=== PATIENT | female | born 1960 | race Caucasian/White ===

== ENCOUNTER 2020-08-07 20:07 | Observation (INO) ==
[2020-08-07] MEDS ORDERED: ALBUTEROL/IPRATROPIUM 3 ML NEB RESP TX STA (21:01)
[2020-08-07 21:09] LABS: Basophils # 0.1 10*3/uL (0.0-0.2); Basophils % 0.6 % (0.0-0.8); Eosinophils # 0.1 10*3/uL (0.0-0.87); Eosinophils % 0.7 % (0.00-10.9); Hematocrit 33.9 VOL% (35.7-47.0); Hemoglobin 11.8 GM/DL (12.0-16.0); Immature Granulocytes % 0.2 %; Immature Granulocytes Absolute 0.02 #; Lymphocytes # 3.4 10*3/uL (1.4-4.0); Lymphocytes % 35.7 % (21.3-54.2); Mean Corpuscular HGB Conc 34.8 GM/DL (32-36); Mean Corpuscular Volume 99.7 FL (87-102); Mean Platelet Volume 8.9 FL (9.6-12.0); Monocytes % 8.1 % (1.7-12.7); Neutrophils % 54.7 % (38.7-73.9); Platelet Count 335 T/CUMM (130-400); Red Cell Distribution Width 11.8 % (9.3-17.3); White Blood Count 9.5 T/CUMM (4-12)
[2020-08-07 21:16] LABS: PT Patient Result 10.9 SECS (9.8-11.9)
[2020-08-07 21:22] LABS: Alanine Aminotransferase 19 U/L (13-56); Albumin 3.9 G/DL (3.4-5.0); Alkaline Phosphatase 80 U/L (45-117); Aspartate Amino Transferase 18 U/L (0-37); Bilirubin,Total < 0.39 MG/DL (0.2-1.0); Blood Urea Nitrogen 12 MG/DL (7-18); Calcium 9.4 MG/DL (8.5-10.1); Estimated Glom Filtration Rate 54 ML/MIN; Glucose 123 MG/DL (74-106); Osmolality,Calculated 264.5 MOS/KG (273-304); Salicylate < 2.8 MG/DL (2.8-20); Total Protein 8.1 G/DL (6.4-8.3)
[2020-08-07 21:23] LABS: Acetaminophen < 2.0 UG/ML (10-30)
[2020-08-07 22:00] LABS: Bacteria,Urine Occasional /HPF (Few); Bilirubin,Urine Negative (Negative); Blood, Urine Small mg/dL (Negative); Glucose,Urine (UA) Negative (Negative); Ketones,Urine Negative (Negative); Nitrite,Urine Negative (Negative); Protein,Urine Negative; RBC,Urine <1 /HPF (0-4); Urine Appearance CLEAR (Clear); Urine Color Straw (Yellow); Urine Urobilinogen < 2.0 EU/DL (0.2-1.0); WBC,Urine 1 /HPF (0-6)
[2020-08-07 22:06] LABS: Barbiturates Screen,Urine Negative (Negative); Benzodiazepines Screen,Urine Negative (Negative); Cannabinoid Screen,Urine Negative (Negative); Opiate Screen,Urine Negative (Negative); Phencyclidine Screen,Urine Negative (Negative)
[2020-08-07] MEDS ORDERED: FUROSEMIDE 40 MG/4 ML VIAL IV STA (22:56)
[2020-08-07] MEDS ORDERED: PHENYTOIN INJ 1,000 MG in SODIUM CHLORIDE 0.9% 100 ML IV STA (22:59)
[2020-08-08] MEDS ORDERED: LORazepam 2 MG/1 ML VIAL IV STA (02:56)
[2020-08-08] MEDS ORDERED: ACETAMINOPHEN 325 MG TABLET PO PRN (02:57)
[2020-08-08] MEDS ORDERED: CLORAZEPATE 3.75 MG TABLET PO PRN (03:26)
[2020-08-08] MEDS ORDERED: INFLUENZA VIRUS VACCINE 0.5 ML SYRINGE IM ONE (05:19)
[2020-08-08] MEDS ORDERED: PNEUMOCOCCAL VACCINE (23 VALENT) 0.5 ML VIAL IM ONE (05:28)
[2020-08-08 05:30] LABS: Basophils # 0.1 10*3/uL (0.0-0.2); Basophils % 0.7 % (0.0-0.8); Eosinophils # 0.1 10*3/uL (0.0-0.87); Eosinophils % 1.7 % (0.00-10.9); Hematocrit 35.3 VOL% (35.7-47.0); Hemoglobin 11.9 GM/DL (12.0-16.0); Immature Granulocytes % 0.4 %; Immature Granulocytes Absolute 0.03 #; Lymphocytes # 3.7 10*3/uL (1.4-4.0); Lymphocytes % 45.1 % (21.3-54.2); Mean Corpuscular HGB Conc 33.7 GM/DL (32-36); Mean Corpuscular Volume 100.6 FL (87-102); Mean Platelet Volume 8.7 FL (9.6-12.0); Monocytes % 8.6 % (1.7-12.7); Neutrophils % 43.5 % (38.7-73.9); Platelet Count 335 T/CUMM (130-400); Red Blood Count 3.51 MC/CUMM (3.8-5.5); Red Cell Distribution Width 11.9 % (9.3-17.3); White Blood Count 8.2 T/CUMM (4-12)
[2020-08-08 05:50] LABS: Eosinophils 3 % (0-10); Hypochromasia 1+; Lymphocytes 51 % (20-55); Microcytosis Slight; Ovalocytes Slight; Platelet Estimate Adequate; Segmented Neutrophils 41 % (50-85); Total Cells Counted 100
[2020-08-08 05:51] LABS: Atypical Lymphocytes Few
[2020-08-08 05:52] LABS: Osmolality,Calculated 270.1 MOS/KG (273-304); Risk Ratio 3.11; Thyroid Stimulating Hormone 3.93 uIU/ml (0.358-3.74)
[2020-08-08] MEDS: ALBUTEROL/IPRATROPIUM 3 ML NEB RESP TX PRN ×2 (07:54→13:59)
[2020-08-08] MEDS: busPIRone 5 MG TABLET PO SCH ×2 (10:09→20:14)
[2020-08-08] MEDS: FLUTICASONE 50 MCG NASAL SPRAY 16 GM BOTTLE BOTH NARES SCH (10:10)
[2020-08-08] MEDS: ENOXAPARIN 40 MG/0.4 ML SYRINGE SUBCUT SCH (10:10)
[2020-08-08] MEDS: CLORAZEPATE 3.75 MG TABLET PO PRN (15:23)
[2020-08-08] MEDS: ONDANSETRON 4 MG/2 ML VIAL IV PRN (19:50)
[2020-08-08] MEDS: PHENYTOIN ER 100 MG CAPSULE PO SCH (20:15)
[2020-08-09] MEDS: ALBUTEROL/IPRATROPIUM 3 ML NEB RESP TX PRN ×4 (00:19→17:00)
[2020-08-09] MEDS: ONDANSETRON 4 MG/2 ML VIAL IV PRN (04:09)
[2020-08-09] MEDS ORDERED: REGADENOSON 0.4 MG/5 ML SYRINGE IV ONE (08:22)
[2020-08-09] MEDS ORDERED: hydroCHLOROthiazide 12.5 MG CAPSULE PO SCH (09:00)
[2020-08-09] MEDS ORDERED: amLODIPine 10 MG TABLET PO SCH (09:00)
[2020-08-09] MEDS: PHENYTOIN ER 100 MG CAPSULE PO SCH ×2 (10:00→15:46)
[2020-08-09] MEDS: busPIRone 5 MG TABLET PO SCH (10:01)
[2020-08-09] MEDS: FLUTICASONE 50 MCG NASAL SPRAY 16 GM BOTTLE BOTH NARES SCH (10:02)
[2020-08-09] MEDS: ENOXAPARIN 40 MG/0.4 ML SYRINGE SUBCUT SCH (10:02)
[2020-08-09] MEDS: CLORAZEPATE 3.75 MG TABLET PO PRN (13:24)
[2020-08-09 16:35] VITALS: BP 136/63
== END 2020-08-09 17:56 | disposition home or self-care (01) ==
LOC: N.ED 20:07 → N.EDINP 20:07 → SUATTDRO 08-08 00:30 → N.TELEN 08-08 02:21
PROVIDERS: ADMIT Internal Medicine; ATTEND Internal Medicine

== ENCOUNTER 2020-08-10 16:50 | Observation (INO) ==
[2020-08-10] MEDS ORDERED: ONDANSETRON 4 MG/2 ML VIAL IV PRN (19:54)
[2020-08-10] MEDS ORDERED: ALBUTEROL/IPRATROPIUM 3 ML NEB RESP TX PRN (19:54)
[2020-08-10] MEDS ORDERED: ACETAMINOPHEN 325 MG TABLET PO PRN (19:54)
[2020-08-10] MEDS ORDERED: DOCUSATE SODIUM 100 MG CAPSULE PO PRN (19:54)
[2020-08-10] MEDS ORDERED: ENOXAPARIN 40 MG/0.4 ML SYRINGE SUBCUT SCH (21:00)
[2020-08-10] MEDS: ALPRAZolam 0.5 MG TABLET PO PRN (21:15)
[2020-08-10] MEDS: LEVALBUTEROL 1.25 MG/3 ML NEB RESP TX PRN (23:26)
[2020-08-11] MEDS: LEVALBUTEROL 1.25 MG/3 ML NEB RESP TX PRN ×3 (04:54→13:52)
[2020-08-11] MEDS: ALPRAZolam 0.5 MG TABLET PO PRN ×3 (05:55→21:45)
[2020-08-11 05:57] LABS: Basophils % 0.2 % (0.0-0.8); Eosinophils # 0.1 10*3/uL (0.0-0.87); Eosinophils % 1.6 % (0.00-10.9); Hematocrit 31.7 VOL% (35.7-47.0); Hemoglobin 11.2 GM/DL (12.0-16.0); Immature Granulocytes % 0.4 %; Immature Granulocytes Absolute 0.03 #; Lymphocytes # 2.2 10*3/uL (1.4-4.0); Lymphocytes % 25.7 % (21.3-54.2); Mean Corpuscular HGB Conc 35.3 GM/DL (32-36); Mean Corpuscular Volume 98.4 FL (87-102); Mean Platelet Volume 8.7 FL (9.6-12.0); Monocytes % 8.1 % (1.7-12.7); Platelet Count 277 T/CUMM (130-400); Red Blood Count 3.22 MC/CUMM (3.8-5.5); Red Cell Distribution Width 11.8 % (9.3-17.3); White Blood Count 8.5 T/CUMM (4-12)
[2020-08-11 06:16] LABS: Albumin 3.6 G/DL (3.4-5.0); Bilirubin,Total 0.4 MG/DL (0.2-1.0); Calcium 9.1 MG/DL (8.5-10.1); Osmolality,Calculated 251.8 MOS/KG (273-304)
[2020-08-11 09:10] LABS: PT Patient Result 10.3 SECS (9.8-11.9); Partial Thromboplastin Time 28.9 SECS (23.9-33.8)
[2020-08-11 09:40] LABS: Troponin I 0.065 NG/ML (0.00-0.045)
[2020-08-11 09:41] LABS: Basophils % 0.2 % (0.0-0.8); Eosinophils # 0.1 10*3/uL (0.0-0.87); Eosinophils % 1.2 % (0.00-10.9); Hematocrit 32.2 VOL% (35.7-47.0); Hemoglobin 11.7 GM/DL (12.0-16.0); Immature Granulocytes % 0.4 %; Immature Granulocytes Absolute 0.04 #; Lymphocytes # 1.9 10*3/uL (1.4-4.0); Lymphocytes % 20.6 % (21.3-54.2); Mean Corpuscular HGB Conc 36.3 GM/DL (32-36); Mean Platelet Volume 8.6 FL (9.6-12.0); Monocytes % 7.6 % (1.7-12.7); Platelet Count 302 T/CUMM (130-400); Red Blood Count 3.32 MC/CUMM (3.8-5.5); Red Cell Distribution Width 11.8 % (9.3-17.3); White Blood Count 9.1 T/CUMM (4-12)
[2020-08-11 09:50] LABS: Calcium 9.2 MG/DL (8.5-10.1); Osmolality,Calculated 250.8 MOS/KG (273-304)
[2020-08-11 09:56] LABS: Alanine Aminotransferase 17 U/L (13-56); Albumin 3.7 G/DL (3.4-5.0); Alkaline Phosphatase 83 U/L (45-117); Aspartate Amino Transferase 20 U/L (0-37); Bilirubin,Direct < 0.100 MG/DL (0.0-0.20); Bilirubin,Indirect 0.3 MG/DL (0.0-1.0); Total Protein 7.6 G/DL (6.4-8.3)
[2020-08-11] MEDS: amLODIPine 10 MG TABLET PO SCH (10:42)
[2020-08-11] MEDS: PANTOPRAZOLE 40 MG TABLET PO SCH (10:42)
[2020-08-11] MEDS: hydroCHLOROthiazide 12.5 MG CAPSULE PO SCH (10:42)
[2020-08-11] MEDS: ASPIRIN EC 81 MG TABLET PO SCH (10:43)
[2020-08-11] MEDS ORDERED: SODIUM CHLORIDE 0.9% 1,000 ML IV SCH ×2 (13:00→16:00)
[2020-08-11] MEDS ORDERED: POTASSIUM CHLORIDE RIDER 10 MEQ in PREMIX 1 EACH IV PRN (13:17)
[2020-08-11] MEDS ORDERED: diphenhydrAMINE CAP 25 MG CAPSULE PO ONE (13:17)
[2020-08-11] MEDS ORDERED: MAGNESIUM SULF RIDER 2 GM in PREMIX 1 EACH IV PRN (13:17)
[2020-08-11] MEDS: BUDESONIDE/FORMOTEROL 80-4.5 INHALER 6.9 GM INH SCH ×2 (13:20→21:45)
[2020-08-11] MEDS ORDERED: LIDOCAINE 1% 20 ML VIAL ONE (14:59)
[2020-08-11] MEDS ORDERED: HEPARIN/NACL 0.9% 2 UNITS/ML 500 ML IV ONE (15:00)
[2020-08-11] MEDS ORDERED: HEPARIN/NACL 0.9% 2 UNITS/ML 1,000 ML IV ONE (15:02)
[2020-08-11] MEDS ORDERED: fentaNYL 100 MCG/2 ML VIAL ONE (15:18)
[2020-08-11] MEDS ORDERED: MIDAZOLAM 2 MG/2 ML VIAL ONE (15:18)
[2020-08-11] MEDS: PHENYTOIN ER 100 MG CAPSULE PO SCH ×2 (16:23→21:45)
[2020-08-11] MEDS: LEVALBUTEROL 1.25 MG/3 ML NEB RESP TX SCH (19:10)
[2020-08-11] MEDS ORDERED: ENOXAPARIN 40 MG/0.4 ML SYRINGE SUBCUT SCH (21:00)
[2020-08-12] MEDS: LEVALBUTEROL 1.25 MG/3 ML NEB RESP TX SCH ×4 (00:46→12:25)
[2020-08-12] MEDS: ALPRAZolam 0.5 MG TABLET PO PRN (05:25)
[2020-08-12 06:02] LABS: Basophils % 0.6 % (0.0-0.8); Eosinophils # 0.1 10*3/uL (0.0-0.87); Eosinophils % 1.7 % (0.00-10.9); Hemoglobin 10.4 GM/DL (12.0-16.0); Immature Granulocytes % 0.4 %; Immature Granulocytes Absolute 0.02 #; Lymphocytes # 1.4 10*3/uL (1.4-4.0); Lymphocytes % 26.3 % (21.3-54.2); Mean Corpuscular HGB Conc 34.7 GM/DL (32-36); Mean Corpuscular Volume 99.7 FL (87-102); Mean Platelet Volume 8.5 FL (9.6-12.0); Monocytes % 8.2 % (1.7-12.7); Neutrophils % 62.8 % (38.7-73.9); Platelet Count 272 T/CUMM (130-400); Red Blood Count 3.01 MC/CUMM (3.8-5.5); White Blood Count 5.4 T/CUMM (4-12)
[2020-08-12 06:18] LABS: Calcium 9.2 MG/DL (8.5-10.1); Osmolality,Calculated 265.7 MOS/KG (273-304)
[2020-08-12 06:39] LABS: Troponin I 0.131 NG/ML (0.00-0.045)
[2020-08-12 08:28] VITALS: BP 122/76
[2020-08-12] MEDS ORDERED: predniSONE 20 MG TABLET PO SCH (09:00)
[2020-08-12] MEDS ORDERED: POTASSIUM CHLORIDE 20 MEQ TABLET PO SCH (09:00)
[2020-08-12] MEDS: PHENYTOIN ER 100 MG CAPSULE PO SCH (09:26)
[2020-08-12] MEDS: hydroCHLOROthiazide 12.5 MG CAPSULE PO SCH (09:26)
[2020-08-12] MEDS: ASPIRIN EC 81 MG TABLET PO SCH (09:27)
[2020-08-12] MEDS: PANTOPRAZOLE 40 MG TABLET PO SCH (09:27)
[2020-08-12] MEDS: amLODIPine 10 MG TABLET PO SCH (09:27)
[2020-08-12] MEDS: BUDESONIDE/FORMOTEROL 80-4.5 INHALER 6.9 GM INH SCH (09:28)
== END 2020-08-12 13:14 | disposition home or self-care (01) ==
LOC: N.TELEN
PROVIDERS: ADMIT Internal Medicine; ATTEND Internal Medicine
PROC: CLCCHCL (ICD-10-PCS; 2020-08-11 15:45)

== ENCOUNTER 2020-09-24 21:21 | Observation (INO) ==
[2020-09-24] MEDS ORDERED: methylPREDNISolone SOD SUC 125 MG/2 ML VIAL IV STA (21:42)
[2020-09-24 21:44] LABS: Basophils % 0.5 % (0.0-0.8); Eosinophils # 0.1 10*3/uL (0.0-0.87); Hematocrit 29.3 VOL% (35.7-47.0); Hemoglobin 9.9 GM/DL (12.0-16.0); Immature Granulocytes % 0.5 %; Immature Granulocytes Absolute 0.03 #; Lymphocytes # 1.5 10*3/uL (1.4-4.0); Lymphocytes % 26.1 % (21.3-54.2); Mean Corpuscular HGB Conc 33.8 GM/DL (32-36); Mean Corpuscular Volume 102.4 FL (87-102); Mean Platelet Volume 8.1 FL (9.6-12.0); Monocytes % 10.4 % (1.7-12.7); Neutrophils % 60.5 % (38.7-73.9); Platelet Count 246 T/CUMM (130-400); Red Blood Count 2.86 MC/CUMM (3.8-5.5); Red Cell Distribution Width 12.9 % (9.3-17.3); White Blood Count 5.9 T/CUMM (4-12)
[2020-09-24 21:58] LABS: PT Patient Result 10.4 SECS (9.8-11.9); Partial Thromboplastin Time 25.2 SECS (23.9-33.8)
[2020-09-24 22:12] LABS: Alanine Aminotransferase 17 U/L (13-56); Albumin 3.4 G/DL (3.4-5.0); Alkaline Phosphatase 60 U/L (45-117); Aspartate Amino Transferase 14 U/L (0-37); Bilirubin,Total < 0.39 MG/DL (0.2-1.0); Blood Urea Nitrogen 28 MG/DL (7-18); Calcium 8.2 MG/DL (8.5-10.1); Estimated Glom Filtration Rate 51 ML/MIN; Ferritin 37.3 ng/ml (8-252); Glucose 103 MG/DL (74-106); Osmolality,Calculated 273.2 MOS/KG (273-304); Total Protein 7.1 G/DL (6.4-8.3)
[2020-09-24] MEDS ORDERED: LORazepam 2 MG/1 ML VIAL ONE (22:20)
[2020-09-24] MEDS ORDERED: LORazepam 2 MG/1 ML VIAL IV STA (22:25)
[2020-09-24] MEDS ORDERED: ALBUTEROL/IPRATROPIUM 3 ML NEB RESP TX STA (22:25)
[2020-09-24] MEDS ORDERED: LEVOFLOXACIN INJ 500 MG in PREMIX 1 EACH IV STA (22:26)
[2020-09-25] MEDS ORDERED: GLUCAGON 1 MG VIAL IM PRN (00:51)
[2020-09-25] MEDS ORDERED: DEXTROSE 50% 25 GM/50 ML VIAL IV PRN (00:51)
[2020-09-25] MEDS ORDERED: ACETAMINOPHEN 325 MG TABLET PO PRN (00:51)
[2020-09-25] MEDS: ALBUTEROL/IPRATROPIUM 3 ML NEB RESP TX SCH ×7 (01:00→23:51)
[2020-09-25] MEDS: ENOXAPARIN 40 MG/0.4 ML SYRINGE SUBCUT SCH (03:04)
[2020-09-25] MEDS: methylPREDNISolone SOD SUC 40 MG/1 ML VIAL IV SCH ×3 (05:17→21:19)
[2020-09-25] MEDS: LORazepam 2 MG/1 ML VIAL IV PRN ×4 (05:18→22:04)
[2020-09-25 06:42] LABS: Basophils % 0.2 % (0.0-0.8); Eosinophils % 0.2 % (0.00-10.9); Hematocrit 30.1 VOL% (35.7-47.0); Hemoglobin 10.1 GM/DL (12.0-16.0); Immature Granulocytes % 0.4 %; Immature Granulocytes Absolute 0.02 #; Lymphocytes # 0.4 10*3/uL (1.4-4.0); Lymphocytes % 8.6 % (21.3-54.2); Mean Corpuscular HGB Conc 33.6 GM/DL (32-36); Mean Corpuscular Volume 103.1 FL (87-102); Monocytes % 1.7 % (1.7-12.7); Neutrophils % 88.9 % (38.7-73.9); Platelet Count 279 T/CUMM (130-400); Red Blood Count 2.92 MC/CUMM (3.8-5.5); Red Cell Distribution Width 12.8 % (9.3-17.3); White Blood Count 4.7 T/CUMM (4-12)
[2020-09-25 06:59] LABS: Albumin 3.2 G/DL (3.4-5.0); Bilirubin,Total 0.5 MG/DL (0.2-1.0); Calcium 9.1 MG/DL (8.5-10.1); Osmolality,Calculated 267.8 MOS/KG (273-304); Total Protein 7.4 G/DL (6.4-8.3)
[2020-09-25] MEDS: DULoxetine 20 MG CAPSULE PO SCH (09:12)
[2020-09-25] MEDS: lisinopriL 10 MG TABLET PO SCH (09:12)
[2020-09-25] MEDS: PANTOPRAZOLE 40 MG TABLET PO SCH (09:12)
[2020-09-25] MEDS: amLODIPine 10 MG TABLET PO SCH (09:13)
[2020-09-25] MEDS: PHENYTOIN ER 100 MG CAPSULE PO SCH ×3 (09:13→21:19)
[2020-09-25] MEDS: FLUTICASONE/SALMETEROL 100-50 DISKUS 14 DOSE INH SCH (21:19)
[2020-09-25] MEDS: LEVOFLOXACIN INJ 500 MG in PREMIX 1 EACH IV SCH ×2 (21:25→22:31)
[2020-09-25] MEDS: ALBUTEROL 2.5 MG/3 ML NEB RESP TX PRN (21:38)
[2020-09-26] MEDS: ENOXAPARIN 40 MG/0.4 ML SYRINGE SUBCUT SCH (01:47)
[2020-09-26] MEDS: ALBUTEROL 2.5 MG/3 ML NEB RESP TX PRN (02:13)
[2020-09-26] MEDS: LORazepam 2 MG/1 ML VIAL IV PRN ×2 (03:20→08:36)
[2020-09-26] MEDS: ALBUTEROL/IPRATROPIUM 3 ML NEB RESP TX SCH ×5 (04:48→18:25)
[2020-09-26] MEDS: methylPREDNISolone SOD SUC 40 MG/1 ML VIAL IV SCH ×3 (05:35→21:07)
[2020-09-26 06:02] LABS: Basophils % 0.4 % (0.0-0.8); Eosinophils % 0.7 % (0.00-10.9); Hematocrit 27.6 VOL% (35.7-47.0); Hemoglobin 9.3 GM/DL (12.0-16.0); Immature Granulocytes % 0.5 %; Immature Granulocytes Absolute 0.03 #; Lymphocytes # 2.2 10*3/uL (1.4-4.0); Lymphocytes % 38.9 % (21.3-54.2); Mean Corpuscular HGB Conc 33.7 GM/DL (32-36); Mean Corpuscular Volume 101.8 FL (87-102); Mean Platelet Volume 8.5 FL (9.6-12.0); Monocytes % 7.9 % (1.7-12.7); Neutrophils % 51.6 % (38.7-73.9); Platelet Count 252 T/CUMM (130-400); Red Blood Count 2.71 MC/CUMM (3.8-5.5); Red Cell Distribution Width 12.5 % (9.3-17.3); White Blood Count 5.6 T/CUMM (4-12)
[2020-09-26 06:32] LABS: Band Neutrophils 1 % (0-10); Eosinophils 1 % (0-10); Lymphocytes 38 % (20-55); Platelet Estimate Adequate; Segmented Neutrophils 51 % (50-85); Total Cells Counted 100
[2020-09-26 06:33] LABS: Hypochromasia 2+; Microcytosis 1+
[2020-09-26 06:34] LABS: Ferritin 28.9 ng/ml (8-252)
[2020-09-26 06:39] LABS: Calcium 8.6 MG/DL (8.5-10.1); Free T4 (Free Thyroxine) 1.01 NG/DL (0.76-1.46); Osmolality,Calculated 269.2 MOS/KG (273-304); Thyroid Stimulating Hormone 0.45 uIU/ml (0.358-3.74)
[2020-09-26 07:23] LABS: Folate 9.9 NG/ML (5.4-24.0)
[2020-09-26] MEDS: DULoxetine 20 MG CAPSULE PO SCH (08:39)
[2020-09-26] MEDS: lisinopriL 10 MG TABLET PO SCH (08:40)
[2020-09-26] MEDS: PHENYTOIN ER 100 MG CAPSULE PO SCH ×3 (08:40→21:07)
[2020-09-26] MEDS: PANTOPRAZOLE 40 MG TABLET PO SCH (08:40)
[2020-09-26] MEDS: amLODIPine 10 MG TABLET PO SCH (08:41)
[2020-09-26] MEDS: FLUTICASONE/SALMETEROL 100-50 DISKUS 14 DOSE INH SCH ×2 (08:42→21:10)
[2020-09-26] MEDS ORDERED: LORazepam 0.5 MG TABLET PO SCH (10:00)
[2020-09-26] MEDS ORDERED: SODIUM CHLORIDE 0.65% NASAL SPRAY 45 ML BOTTLE BOTH NARES PRN (11:01)
[2020-09-26] MEDS: LORazepam 0.5 MG TABLET PO PRN ×3 (11:06→21:16)
[2020-09-26] MEDS: LEVOFLOXACIN INJ 500 MG in PREMIX 1 EACH IV SCH (21:10)
[2020-09-27] MEDS: ALBUTEROL/IPRATROPIUM 3 ML NEB RESP TX SCH ×4 (00:05→11:28)
[2020-09-27] MEDS: ENOXAPARIN 40 MG/0.4 ML SYRINGE SUBCUT SCH (03:42)
[2020-09-27] MEDS: LORazepam 0.5 MG TABLET PO PRN (05:37)
[2020-09-27] MEDS: methylPREDNISolone SOD SUC 40 MG/1 ML VIAL IV SCH (05:39)
[2020-09-27 06:10] LABS: Basophils % 0.2 % (0.0-0.8); Eosinophils % 0.2 % (0.00-10.9); Hematocrit 31.6 VOL% (35.7-47.0); Hemoglobin 10.7 GM/DL (12.0-16.0); Immature Granulocytes % 0.7 %; Immature Granulocytes Absolute 0.04 #; Lymphocytes # 1.8 10*3/uL (1.4-4.0); Lymphocytes % 30.5 % (21.3-54.2); Mean Corpuscular HGB Conc 33.9 GM/DL (32-36); Mean Platelet Volume 8.6 FL (9.6-12.0); Monocytes % 7.1 % (1.7-12.7); Neutrophils % 61.3 % (38.7-73.9); Platelet Count 269 T/CUMM (130-400); Red Blood Count 3.16 MC/CUMM (3.8-5.5); Red Cell Distribution Width 12.2 % (9.3-17.3); White Blood Count 5.9 T/CUMM (4-12)
[2020-09-27 06:30] LABS: Calcium 9.4 MG/DL (8.5-10.1); Osmolality,Calculated 255.2 MOS/KG (273-304)
[2020-09-27] MEDS ORDERED: FUROSEMIDE 20 MG/2 ML VIAL IV ONE (08:22)
[2020-09-27] MEDS: FLUTICASONE/SALMETEROL 100-50 DISKUS 14 DOSE INH SCH (08:46)
[2020-09-27] MEDS: PANTOPRAZOLE 40 MG TABLET PO SCH (08:46)
[2020-09-27] MEDS: PHENYTOIN ER 100 MG CAPSULE PO SCH (08:46)
[2020-09-27] MEDS: DULoxetine 20 MG CAPSULE PO SCH (08:46)
[2020-09-27] MEDS: lisinopriL 10 MG TABLET PO SCH (08:47)
[2020-09-27] MEDS ORDERED: MULTIVITAMIN (CENTRUM) TABLET PO SCH (09:00)
[2020-09-27 09:25] VITALS: BP 168/72
[2020-09-27] MEDS ORDERED: hydrOXYzine HCL 25 MG TABLET PO ONE (12:08)
== END 2020-09-27 12:55 | disposition home or self-care (01) ==
LOC: EDUNIT# → EDBD → N.ED 21:21 → N.EDINP 21:21 → N.4E 09-25 02:21
PROVIDERS: ADMIT Internal Medicine; ATTEND Internal Medicine

== ENCOUNTER 2020-09-30 18:04 | Observation (INO) ==
[2020-09-30] MEDS ORDERED: ASPIRIN 325 MG TABLET PO STA (18:20)
[2020-09-30] MEDS ORDERED: ALBUTEROL 2.5 MG/3 ML NEB RESP TX STA (18:37)
[2020-09-30] MEDS ORDERED: methylPREDNISolone SOD SUC 125 MG/2 ML VIAL IV STA (18:37)
[2020-09-30 18:46] LABS: Basophils % 0.4 % (0.0-0.8); Eosinophils # 0.2 10*3/uL (0.0-0.87); Eosinophils % 2.9 % (0.00-10.9); Hematocrit 30.2 VOL% (35.7-47.0); Hemoglobin 10.3 GM/DL (12.0-16.0); Immature Granulocytes % 0.6 %; Immature Granulocytes Absolute 0.04 #; Lymphocytes # 1.8 10*3/uL (1.4-4.0); Lymphocytes % 26.6 % (21.3-54.2); Mean Corpuscular HGB Conc 34.1 GM/DL (32-36); Mean Corpuscular Volume 101.7 FL (87-102); Mean Platelet Volume 8.5 FL (9.6-12.0); Monocytes % 8.5 % (1.7-12.7); Platelet Count 243 T/CUMM (130-400); Red Blood Count 2.97 MC/CUMM (3.8-5.5); Red Cell Distribution Width 13.1 % (9.3-17.3); White Blood Count 6.9 T/CUMM (4-12)
[2020-09-30 19:05] LABS: Alanine Aminotransferase 19 U/L (13-56); Albumin 3.4 G/DL (3.4-5.0); Alkaline Phosphatase 61 U/L (45-117); Aspartate Amino Transferase 13 U/L (0-37); Bilirubin,Total < 0.39 MG/DL (0.2-1.0); Blood Urea Nitrogen 23 MG/DL (7-18); Calcium 8.9 MG/DL (8.5-10.1); Estimated Glom Filtration Rate 52 ML/MIN; Glucose 122 MG/DL (74-106); Osmolality,Calculated 274.1 MOS/KG (273-304); Total Protein 7.1 G/DL (6.4-8.3)
[2020-09-30] MEDS ORDERED: ALBUTEROL NEB SOLN 5 MG/ML 20 ML/BOTTLE ONE (19:08)
[2020-09-30 19:52] LABS: ABG Base Excess 1.5 MMOL/L (-2.5-2.5); ABG HCO3 27.5 MMOL/L (20-26); ABG Oxygen Saturation 97.6 % (95-100); ABG PCO2 49.5 MM HG (35-48); ABG PH 7.363 (7.35-7.45); ABG PO2 98.1 MM HG (80-95); Allen Test Positive
[2020-09-30] MEDS ORDERED: hydrALAZINE 20 MG/1 ML VIAL IV PRN (21:03)
[2020-09-30] MEDS ORDERED: DEXTROSE 50% 25 GM/50 ML VIAL IV PRN (21:03)
[2020-09-30] MEDS ORDERED: GLUCAGON 1 MG VIAL IM PRN (21:03)
[2020-09-30] MEDS ORDERED: NICOTINE 21 MG/24 HR PATCH TRANSDERM PRN (21:03)
[2020-09-30] MEDS ORDERED: guaiFENesin/DM ER 600-30 MG TABLET PO PRN (21:03)
[2020-09-30] MEDS ORDERED: ONDANSETRON 4 MG/2 ML VIAL IV PRN (21:03)
[2020-09-30] MEDS: LEVOFLOXACIN INJ 500 MG in PREMIX 1 EACH IV SCH (21:36)
[2020-09-30] MEDS: ALBUTEROL/IPRATROPIUM 3 ML NEB RESP TX SCH (23:19)
[2020-09-30] MEDS: ALBUTEROL 2.5 MG/3 ML NEB RESP TX PRN (23:37)
[2020-10-01] MEDS ORDERED: ALBUTEROL/IPRATROPIUM 3 ML NEB RESP TX SCH (01:00)
[2020-10-01] MEDS: ALBUTEROL/IPRATROPIUM 3 ML NEB RESP TX SCH ×4 (01:22→19:15)
[2020-10-01] MEDS ORDERED: GLUCAGON 1 MG VIAL IM PRN (01:49)
[2020-10-01] MEDS ORDERED: DEXTROSE 50% 25 GM/50 ML VIAL IV PRN (01:49)
[2020-10-01 02:19] LABS: Ferritin 33.1 ng/ml (8-252)
[2020-10-01] MEDS: ALBUTEROL 2.5 MG/3 ML NEB RESP TX PRN ×4 (04:41→23:10)
[2020-10-01 04:47] LABS: Ferritin 29.4 ng/ml (8-252)
[2020-10-01] MEDS: SODIUM CHLORIDE 0.9% 1,000 ML IV SCH ×2 (07:00→17:55)
[2020-10-01] MEDS: ACETAMINOPHEN 325 MG TABLET PO PRN ×2 (09:07→17:51)
[2020-10-01] MEDS: INSULIN LISPRO 100 UNIT/ML SUBCUT SCH ×4 (09:07→23:54)
[2020-10-01] MEDS: methylPREDNISolone SOD SUC 40 MG/1 ML VIAL IV SCH ×2 (09:08→21:59)
[2020-10-01] MEDS: PHENYTOIN ER 100 MG CAPSULE PO SCH ×2 (16:01→21:58)
[2020-10-01] MEDS ORDERED: CLORAZEPATE 3.75 MG TABLET PO PRN (21:24)
[2020-10-01] MEDS: ESCITALOPRAM 10 MG TABLET PO SCH (21:58)
[2020-10-01] MEDS: LEVOFLOXACIN INJ 500 MG in PREMIX 1 EACH IV SCH (21:59)
[2020-10-01] MEDS: FLUTICASONE/SALMETEROL 100-50 DISKUS 14 DOSE INH SCH (22:10)
[2020-10-02] MEDS: ALBUTEROL/IPRATROPIUM 3 ML NEB RESP TX SCH ×4 (02:15→19:44)
[2020-10-02] MEDS: SODIUM CHLORIDE 0.9% 1,000 ML IV SCH ×3 (04:41→15:57)
[2020-10-02 05:52] LABS: Basophils % 0.2 % (0.0-0.8); Hemoglobin 9.5 GM/DL (12.0-16.0); Immature Granulocytes % 0.6 %; Immature Granulocytes Absolute 0.03 #; Lymphocytes # 0.8 10*3/uL (1.4-4.0); Lymphocytes % 16.1 % (21.3-54.2); Mean Corpuscular HGB Conc 32.8 GM/DL (32-36); Mean Corpuscular Volume 104.3 FL (87-102); Mean Platelet Volume 8.5 FL (9.6-12.0); Monocytes % 4.2 % (1.7-12.7); Neutrophils % 78.9 % (38.7-73.9); Platelet Count 223 T/CUMM (130-400); Red Blood Count 2.78 MC/CUMM (3.8-5.5); Red Cell Distribution Width 12.9 % (9.3-17.3)
[2020-10-02 06:35] LABS: Calcium 8.6 MG/DL (8.5-10.1); Osmolality,Calculated 276.8 MOS/KG (273-304)
[2020-10-02] MEDS ORDERED: MULTIVITAMIN (CENTRUM) TABLET PO SCH (09:00)
[2020-10-02] MEDS: MULTIVITAMIN (CENTRUM) TABLET PO SCH (09:31)
[2020-10-02] MEDS: CLORAZEPATE 3.75 MG TABLET PO PRN ×2 (09:31→17:52)
[2020-10-02] MEDS: methylPREDNISolone SOD SUC 40 MG/1 ML VIAL IV SCH ×2 (09:31→21:23)
[2020-10-02] MEDS: PHENYTOIN ER 100 MG CAPSULE PO SCH ×3 (09:32→21:22)
[2020-10-02] MEDS: lisinopriL 10 MG TABLET PO SCH (09:32)
[2020-10-02] MEDS: hydroCHLOROthiazide 12.5 MG CAPSULE PO SCH (09:32)
[2020-10-02] MEDS: DULoxetine 20 MG CAPSULE PO SCH (09:37)
[2020-10-02] MEDS: FLUTICASONE/SALMETEROL 100-50 DISKUS 14 DOSE INH SCH ×2 (09:37→21:22)
[2020-10-02] MEDS: INSULIN LISPRO 100 UNIT/ML SUBCUT SCH ×3 (11:39→15:56)
[2020-10-02] MEDS: ESCITALOPRAM 10 MG TABLET PO SCH (21:22)
[2020-10-03] MEDS: SODIUM CHLORIDE 0.9% 1,000 ML IV SCH ×3 (00:33→21:25)
[2020-10-03] MEDS: ALBUTEROL/IPRATROPIUM 3 ML NEB RESP TX SCH ×4 (01:17→19:07)
[2020-10-03] MEDS: INSULIN LISPRO 100 UNIT/ML SUBCUT SCH ×4 (04:52→20:35)
[2020-10-03 06:41] LABS: Basophils % 0.2 % (0.0-0.8); Hematocrit 25.3 VOL% (35.7-47.0); Hemoglobin 8.5 GM/DL (12.0-16.0); Immature Granulocytes % 0.6 %; Immature Granulocytes Absolute 0.03 #; Lymphocytes # 1.6 10*3/uL (1.4-4.0); Lymphocytes % 30.3 % (21.3-54.2); Mean Corpuscular HGB Conc 33.6 GM/DL (32-36); Mean Platelet Volume 8.1 FL (9.6-12.0); Monocytes % 5.6 % (1.7-12.7); Neutrophils % 63.3 % (38.7-73.9); Platelet Count 176 T/CUMM (130-400); Red Blood Count 2.48 MC/CUMM (3.8-5.5); Red Cell Distribution Width 12.5 % (9.3-17.3); White Blood Count 5.2 T/CUMM (4-12)
[2020-10-03] MEDS: LEVOFLOXACIN INJ 500 MG in PREMIX 1 EACH IV SCH ×2 (06:41→21:35)
[2020-10-03 07:08] LABS: Lymphocytes 28 % (20-55); Platelet Estimate Adequate; Segmented Neutrophils 67 % (50-85); Total Cells Counted 100
[2020-10-03 07:09] LABS: Hypochromasia 1+; Microcytosis 1+; Ovalocytes Slight
[2020-10-03 07:16] LABS: Calcium 7.4 MG/DL (8.5-10.1); Osmolality,Calculated 277.5 MOS/KG (273-304)
[2020-10-03] MEDS: lisinopriL 10 MG TABLET PO SCH (09:07)
[2020-10-03] MEDS: PHENYTOIN ER 100 MG CAPSULE PO SCH ×3 (09:07→21:27)
[2020-10-03] MEDS: MULTIVITAMIN (CENTRUM) TABLET PO SCH (09:07)
[2020-10-03] MEDS: hydroCHLOROthiazide 12.5 MG CAPSULE PO SCH (09:08)
[2020-10-03] MEDS: methylPREDNISolone SOD SUC 40 MG/1 ML VIAL IV SCH ×2 (09:10→21:27)
[2020-10-03] MEDS: ACETAMINOPHEN 325 MG TABLET PO PRN ×2 (09:19→18:34)
[2020-10-03] MEDS: FLUTICASONE/SALMETEROL 100-50 DISKUS 14 DOSE INH SCH ×2 (09:20→21:27)
[2020-10-03] MEDS: DULoxetine 20 MG CAPSULE PO SCH (11:00)
[2020-10-03] MEDS: ESCITALOPRAM 10 MG TABLET PO SCH (21:27)
[2020-10-03] MEDS: ALBUTEROL 2.5 MG/3 ML NEB RESP TX PRN (22:26)
[2020-10-04] MEDS: ALBUTEROL/IPRATROPIUM 3 ML NEB RESP TX SCH ×6 (00:30→23:39)
[2020-10-04] MEDS: ACETAMINOPHEN 325 MG TABLET PO PRN ×2 (01:59→20:12)
[2020-10-04] MEDS: diphenhydrAMINE CAP 25 MG CAPSULE PO PRN ×3 (01:59→23:28)
[2020-10-04 05:30] LABS: Basophils % 0.1 % (0.0-0.8); Eosinophils % 0.1 % (0.00-10.9); Hematocrit 32.1 VOL% (35.7-47.0); Immature Granulocytes % 0.9 %; Immature Granulocytes Absolute 0.06 #; Lymphocytes # 1.8 10*3/uL (1.4-4.0); Lymphocytes % 26.6 % (21.3-54.2); Mean Corpuscular Volume 104.2 FL (87-102); Mean Platelet Volume 8.6 FL (9.6-12.0); Monocytes % 5.5 % (1.7-12.7); Neutrophils % 66.8 % (38.7-73.9); Red Cell Distribution Width 12.5 % (9.3-17.3)
[2020-10-04] MEDS: ALBUTEROL 2.5 MG/3 ML NEB RESP TX PRN (05:42)
[2020-10-04 05:58] LABS: Calcium 8.9 MG/DL (8.5-10.1); Osmolality,Calculated 266.5 MOS/KG (273-304)
[2020-10-04 06:02] LABS: Hemoglobin 10.6 GM/DL (12.0-16.0); Platelet Count 282 T/CUMM (130-400); Red Blood Count 3.08 MC/CUMM (3.8-5.5); White Blood Count 6.8 T/CUMM (4-12)
[2020-10-04] MEDS: INSULIN LISPRO 100 UNIT/ML SUBCUT SCH ×5 (07:43→22:35)
[2020-10-04] MEDS: hydroCHLOROthiazide 12.5 MG CAPSULE PO SCH (09:35)
[2020-10-04] MEDS: MULTIVITAMIN (CENTRUM) TABLET PO SCH (09:35)
[2020-10-04] MEDS: DULoxetine 20 MG CAPSULE PO SCH (09:35)
[2020-10-04] MEDS: PHENYTOIN ER 100 MG CAPSULE PO SCH ×3 (09:35→22:25)
[2020-10-04] MEDS: lisinopriL 10 MG TABLET PO SCH (09:35)
[2020-10-04] MEDS: FLUTICASONE/SALMETEROL 100-50 DISKUS 14 DOSE INH SCH ×2 (09:36→22:31)
[2020-10-04] MEDS: methylPREDNISolone SOD SUC 40 MG/1 ML VIAL IV SCH ×2 (09:37→22:26)
[2020-10-04] MEDS: SODIUM CHLORIDE 0.9% 1,000 ML IV SCH ×2 (09:41→22:26)
[2020-10-04] MEDS ORDERED: ALUM/MAG/SIMETH/LIDO VISC 1:1 30 ML BOTTLE PO ONE ×2 (14:38→14:42)
[2020-10-04] MEDS: CLORAZEPATE 3.75 MG TABLET PO PRN (14:48)
[2020-10-04 15:22] LABS: Troponin I < 0.015 NG/ML (0.00-0.045)
[2020-10-04] MEDS: ESCITALOPRAM 10 MG TABLET PO SCH (22:25)
[2020-10-04] MEDS: LEVOFLOXACIN INJ 500 MG in PREMIX 1 EACH IV SCH (22:31)
[2020-10-05] MEDS: CLORAZEPATE 3.75 MG TABLET PO PRN (01:42)
[2020-10-05] MEDS: ALBUTEROL/IPRATROPIUM 3 ML NEB RESP TX SCH ×3 (03:07→10:39)
[2020-10-05] MEDS: diphenhydrAMINE CAP 25 MG CAPSULE PO PRN (05:00)
[2020-10-05 05:58] LABS: Basophils % 0.2 % (0.0-0.8); Hematocrit 29.7 VOL% (35.7-47.0); Hemoglobin 9.8 GM/DL (12.0-16.0); Immature Granulocytes % 1.1 %; Immature Granulocytes Absolute 0.07 #; Lymphocytes # 1.5 10*3/uL (1.4-4.0); Lymphocytes % 24.3 % (21.3-54.2); Mean Corpuscular Volume 103.1 FL (87-102); Mean Platelet Volume 8.4 FL (9.6-12.0); Monocytes % 4.9 % (1.7-12.7); Neutrophils % 69.5 % (38.7-73.9); Platelet Count 257 T/CUMM (130-400); Red Blood Count 2.88 MC/CUMM (3.8-5.5); Red Cell Distribution Width 12.8 % (9.3-17.3); White Blood Count 6.2 T/CUMM (4-12)
[2020-10-05 06:09] LABS: Calcium 8.6 MG/DL (8.5-10.1); Osmolality,Calculated 270.4 MOS/KG (273-304)
[2020-10-05 08:11] VITALS: BP 140/67
[2020-10-05] MEDS: methylPREDNISolone SOD SUC 40 MG/1 ML VIAL IV SCH ×2 (08:52→08:55)
[2020-10-05] MEDS: MULTIVITAMIN (CENTRUM) TABLET PO SCH (08:56)
[2020-10-05] MEDS: PHENYTOIN ER 100 MG CAPSULE PO SCH (08:57)
[2020-10-05] MEDS: hydroCHLOROthiazide 12.5 MG CAPSULE PO SCH (08:57)
[2020-10-05] MEDS: lisinopriL 10 MG TABLET PO SCH (08:58)
[2020-10-05] MEDS: DULoxetine 20 MG CAPSULE PO SCH (08:58)
[2020-10-05] MEDS: FLUTICASONE/SALMETEROL 100-50 DISKUS 14 DOSE INH SCH (08:59)
[2020-10-05] MEDS: ACETAMINOPHEN 325 MG TABLET PO PRN (09:01)
== END 2020-10-05 11:05 | disposition home or self-care (01) ==
LOC: N.EDINP 18:04 → N.ED 18:04 → SUATTDRO 21:03 → N.5E 21:32 → N.OB 10-02 18:47
PROVIDERS: ADMIT Internal Medicine; ATTEND Internal Medicine

== ENCOUNTER 2020-11-20 00:44 | Observation (INO) ==
[2020-11-20] MEDS ORDERED: ALBUTEROL/IPRATROPIUM 3 ML NEB RESP TX STA (01:12)
[2020-11-20] MEDS ORDERED: methylPREDNISolone SOD SUC 125 MG/2 ML VIAL IV STA (01:12)
[2020-11-20 01:53] LABS: Basophils % 0.4 % (0.0-0.8); Eosinophils % 0.5 % (0.00-10.9); Hematocrit 35.1 VOL% (35.7-47.0); Immature Granulocytes % 0.2 %; Immature Granulocytes Absolute 0.02 #; Lymphocytes # 1.5 10*3/uL (1.4-4.0); Lymphocytes % 18.1 % (21.3-54.2); Mean Corpuscular HGB Conc 31.3 GM/DL (32-36); Mean Corpuscular Volume 101.4 FL (87-102); Mean Platelet Volume 8.8 FL (9.6-12.0); Monocytes % 8.8 % (1.7-12.7); Platelet Count 267 T/CUMM (130-400); Red Blood Count 3.46 MC/CUMM (3.8-5.5); Red Cell Distribution Width 12.6 % (9.3-17.3); White Blood Count 8.5 T/CUMM (4-12)
[2020-11-20 02:05] LABS: PT Patient Result 10.8 SECS (9.8-11.9)
[2020-11-20 02:12] LABS: Alanine Aminotransferase 15 U/L (13-56); Albumin 3.5 G/DL (3.4-5.0); Alkaline Phosphatase 70 U/L (45-117); Aspartate Amino Transferase 15 U/L (0-37); Bilirubin,Total < 0.39 MG/DL (0.2-1.0); Blood Urea Nitrogen 17 MG/DL (7-18); Calcium 8.7 MG/DL (8.5-10.1); Carbon Dioxide 28 MMOL/L (21-32); Estimated Glom Filtration Rate 75 ML/MIN; Glucose 139 MG/DL (74-106); Osmolality,Calculated 278.7 MOS/KG (273-304); Potassium 3.5 MMOL/L (3.5-5.1); Sodium 138 MMOL/L (136-145); Total Protein 6.8 G/DL (6.4-8.3)
[2020-11-20] MEDS ORDERED: ONDANSETRON 4 MG/2 ML VIAL IV ONE (02:40)
[2020-11-20] MEDS ORDERED: MORPHINE 4 MG/1 ML VIAL IV STA (02:40)
[2020-11-20] MEDS ORDERED: ALBUTEROL 2.5 MG/3 ML NEB RESP TX STA (02:40)
[2020-11-20] MEDS ORDERED: DEXTROSE 50% 25 GM/50 ML VIAL IV PRN (03:16)
[2020-11-20] MEDS ORDERED: GLUCAGON 1 MG VIAL IM PRN (03:16)
[2020-11-20] MEDS ORDERED: ONDANSETRON 4 MG/2 ML VIAL IV PRN (03:26)
[2020-11-20] MEDS: ALBUTEROL/IPRATROPIUM 3 ML NEB RESP TX SCH ×3 (06:34→19:26)
[2020-11-20 07:31] LABS: Alanine Aminotransferase 17 U/L (13-56); Albumin 3.5 G/DL (3.4-5.0); Alkaline Phosphatase 74 U/L (45-117); Aspartate Amino Transferase 14 U/L (0-37); Bilirubin,Total < 0.39 MG/DL (0.2-1.0); Blood Urea Nitrogen 17 MG/DL (7-18); Calcium 9.1 MG/DL (8.5-10.1); Carbon Dioxide 26 MMOL/L (21-32); Estimated Glom Filtration Rate 75 ML/MIN; Glucose 158 MG/DL (74-106); Sodium 136 MMOL/L (136-145); Total Protein 7.6 G/DL (6.4-8.3)
[2020-11-20] MEDS: ALPRAZolam 0.5 MG TABLET PO SCH ×3 (09:19→20:55)
[2020-11-20] MEDS: cefTRIAXone 1,000 MG in SYRINGE 1 EACH IV SCH (09:34)
[2020-11-20] MEDS: methylPREDNISolone SOD SUC 40 MG/1 ML VIAL IV SCH ×2 (09:34→16:41)
[2020-11-20] MEDS: ENOXAPARIN 40 MG/0.4 ML SYRINGE SUBCUT SCH (09:34)
[2020-11-20] MEDS: NICOTINE 21 MG/24 HR PATCH TRANSDERM SCH (10:57)
[2020-11-20] MEDS: BUDESONIDE/FORMOTEROL 160-4.5 INHALER 6 GM INH SCH ×2 (10:57→20:56)
[2020-11-20] MEDS: PANTOPRAZOLE 40 MG TABLET PO SCH (10:57)
[2020-11-20] MEDS: ACETYLCYSTEINE 20% 800 MG/4 ML VIAL RESP TX SCH ×2 (12:00→19:26)
[2020-11-20] MEDS: ACETAMINOPHEN 325 MG TABLET PO PRN (21:06)
[2020-11-21] MEDS: methylPREDNISolone SOD SUC 40 MG/1 ML VIAL IV SCH ×4 (00:13→21:10)
[2020-11-21] MEDS: MORPHINE 4 MG/1 ML VIAL IV PRN ×2 (00:13→05:45)
[2020-11-21] MEDS: ACETYLCYSTEINE 20% 800 MG/4 ML VIAL RESP TX SCH ×2 (00:40→07:27)
[2020-11-21] MEDS: ALBUTEROL/IPRATROPIUM 3 ML NEB RESP TX SCH ×4 (00:40→19:40)
[2020-11-21] MEDS: cefTRIAXone 1,000 MG in SYRINGE 1 EACH IV SCH (04:28)
[2020-11-21 05:51] LABS: Hematocrit 32.5 VOL% (35.7-47.0); Hemoglobin 10.5 GM/DL (12.0-16.0); Immature Granulocytes % 0.5 %; Immature Granulocytes Absolute 0.03 #; Lymphocytes # 0.6 10*3/uL (1.4-4.0); Lymphocytes % 10.3 % (21.3-54.2); Mean Corpuscular HGB Conc 32.3 GM/DL (32-36); Mean Corpuscular Volume 99.4 FL (87-102); Mean Platelet Volume 9.1 FL (9.6-12.0); Monocytes % 7.1 % (1.7-12.7); Neutrophils % 82.1 % (38.7-73.9); Platelet Count 233 T/CUMM (130-400); Red Blood Count 3.27 MC/CUMM (3.8-5.5); Red Cell Distribution Width 12.3 % (9.3-17.3); White Blood Count 5.9 T/CUMM (4-12)
[2020-11-21] MEDS: ENOXAPARIN 40 MG/0.4 ML SYRINGE SUBCUT SCH (06:41)
[2020-11-21] MEDS: ALPRAZolam 0.5 MG TABLET PO SCH ×3 (09:53→21:10)
[2020-11-21] MEDS: ACETAMINOPHEN 325 MG TABLET PO PRN ×2 (09:53→21:10)
[2020-11-21] MEDS: BUDESONIDE/FORMOTEROL 160-4.5 INHALER 6 GM INH SCH (09:54)
[2020-11-21] MEDS: NICOTINE 21 MG/24 HR PATCH TRANSDERM SCH (09:54)
[2020-11-21] MEDS: PANTOPRAZOLE 40 MG TABLET PO SCH (09:54)
[2020-11-21] MEDS ORDERED: MORPHINE 4 MG/1 ML VIAL IV PRN (10:30)
[2020-11-21] MEDS: NAPROXEN 500 MG TABLET PO PRN (13:58)
[2020-11-22] MEDS: ALBUTEROL/IPRATROPIUM 3 ML NEB RESP TX SCH ×3 (00:25→13:00)
[2020-11-22] MEDS: BUDESONIDE/FORMOTEROL 160-4.5 INHALER 6 GM INH SCH ×2 (02:39→09:33)
[2020-11-22] MEDS: cefTRIAXone 1,000 MG in SYRINGE 1 EACH IV SCH (05:11)
[2020-11-22] MEDS ORDERED: ALBUTEROL/IPRATROPIUM 3 ML NEB RESP TX PRN (05:20)
[2020-11-22] MEDS ORDERED: MULTIVITAMIN (CENTRUM) TABLET PO SCH (09:00)
[2020-11-22] MEDS: ALPRAZolam 0.5 MG TABLET PO SCH (09:31)
[2020-11-22] MEDS: ENOXAPARIN 40 MG/0.4 ML SYRINGE SUBCUT SCH (09:32)
[2020-11-22] MEDS: NICOTINE 21 MG/24 HR PATCH TRANSDERM SCH (09:32)
[2020-11-22] MEDS: methylPREDNISolone SOD SUC 40 MG/1 ML VIAL IV SCH (09:32)
[2020-11-22] MEDS: PANTOPRAZOLE 40 MG TABLET PO SCH (09:32)
[2020-11-22 12:07] VITALS: BP 147/77
[2020-11-22] MEDS: NAPROXEN 500 MG TABLET PO PRN (12:56)
== END 2020-11-22 14:48 | disposition home or self-care (01) ==
LOC: EDBD → EDUNIT# → N.ED 00:44 → N.EDINP 00:44 → SUATTDRO 03:26 → N.5E 05:43
PROVIDERS: ADMIT Internal Medicine; ATTEND Internal Medicine

== ENCOUNTER 2020-11-23 08:10 | Inpatient (IN) ==
[2020-11-23] MEDS ORDERED: ALBUTEROL/IPRATROPIUM 3 ML NEB RESP TX STA (08:15)
[2020-11-23] MEDS ORDERED: methylPREDNISolone SOD SUC 125 MG/2 ML VIAL IV STA (08:15)
[2020-11-23] MEDS ORDERED: hydrALAZINE 20 MG/1 ML VIAL IV STA ×2 (08:15→09:36)
[2020-11-23] MEDS ORDERED: ALBUTEROL NEB SOLN 5 MG/ML 20 ML/BOTTLE CONT NEB SCH (08:30)
[2020-11-23 08:48] LABS: Basophils % 0.2 % (0.0-0.8); Eosinophils % 0.5 % (0.00-10.9); Hematocrit 35.6 VOL% (35.7-47.0); Hemoglobin 11.4 GM/DL (12.0-16.0); Immature Granulocytes % 0.7 %; Immature Granulocytes Absolute 0.06 #; Lymphocytes # 2.2 10*3/uL (1.4-4.0); Lymphocytes % 27.6 % (21.3-54.2); Mean Corpuscular Volume 102.6 FL (87-102); Mean Platelet Volume 8.5 FL (9.6-12.0); Monocytes % 7.3 % (1.7-12.7); Neutrophils % 63.7 % (38.7-73.9); Platelet Count 278 T/CUMM (130-400); Red Blood Count 3.47 MC/CUMM (3.8-5.5); Red Cell Distribution Width 12.8 % (9.3-17.3); White Blood Count 8.1 T/CUMM (4-12)
[2020-11-23 09:16] LABS: ABG Base Excess 6.2 MMOL/L (-2.5-2.5); ABG HCO3 30.1 MMOL/L (20-26); ABG Oxygen Saturation 99.8 % (95-100); ABG PCO2 48.5 MM HG (35-48); ABG PH 7.423 (7.35-7.45); ABG TCO2 28.2 MMOL/L (23-27)
[2020-11-23 09:23] LABS: Alanine Aminotransferase 17 U/L (13-56); Albumin 3.8 G/DL (3.4-5.0); Alkaline Phosphatase 63 U/L (45-117); Aspartate Amino Transferase 14 U/L (0-37); Bilirubin,Total < 0.39 MG/DL (0.2-1.0); Blood Urea Nitrogen 19 MG/DL (7-18); Calcium 9.1 MG/DL (8.5-10.1); Carbon Dioxide 30 MMOL/L (21-32); Estimated Glom Filtration Rate 73 ML/MIN; Glucose 119 MG/DL (74-106); Osmolality,Calculated 277.7 MOS/KG (273-304); Potassium 3.7 MMOL/L (3.5-5.1); Sodium 138 MMOL/L (136-145); Total Protein 7.6 G/DL (6.4-8.3)
[2020-11-23] MEDS ORDERED: LORazepam 2 MG/1 ML VIAL IV STA (09:27)
[2020-11-23] MEDS ORDERED: ONDANSETRON 4 MG/2 ML VIAL IV PRN (11:35)
[2020-11-23] MEDS ORDERED: DEXTROSE 50% 25 GM/50 ML VIAL IV PRN (11:35)
[2020-11-23] MEDS ORDERED: GLUCAGON 1 MG VIAL IM PRN (11:35)
[2020-11-23] MEDS ORDERED: ACETAMINOPHEN 325 MG TABLET PO PRN (11:37)
[2020-11-23] MEDS: HydrOXYzine PAMOATE 25 MG CAPSULE PO PRN ×2 (12:42→22:54)
[2020-11-23] MEDS: ALBUTEROL 2.5 MG/3 ML NEB RESP TX PRN ×3 (12:50→18:16)
[2020-11-23] MEDS ORDERED: SODIUM CHLORIDE 0.65% NASAL SPRAY 45 ML BOTTLE BOTH NARES PRN (13:00)
[2020-11-23] MEDS: ALPRAZolam 0.5 MG TABLET PO SCH ×2 (15:23→20:28)
[2020-11-23] MEDS: PHENYTOIN ER 100 MG CAPSULE PO SCH ×2 (16:10→20:28)
[2020-11-23] MEDS: ESCITALOPRAM 10 MG TABLET PO SCH (20:28)
[2020-11-23] MEDS: BUDESONIDE/FORMOTEROL 160-4.5 INHALER 6 GM INH SCH (20:30)
[2020-11-24] MEDS: ALBUTEROL 2.5 MG/3 ML NEB RESP TX PRN (04:18)
[2020-11-24 05:30] LABS: Basophils % 0.1 % (0.0-0.8); Eosinophils % 0.3 % (0.00-10.9); Hematocrit 32.5 VOL% (35.7-47.0); Hemoglobin 10.4 GM/DL (12.0-16.0); Immature Granulocytes % 0.3 %; Immature Granulocytes Absolute 0.03 #; Lymphocytes # 3.1 10*3/uL (1.4-4.0); Lymphocytes % 34.2 % (21.3-54.2); Mean Corpuscular Volume 101.2 FL (87-102); Mean Platelet Volume 9.1 FL (9.6-12.0); Neutrophils % 56.1 % (38.7-73.9); Platelet Count 298 T/CUMM (130-400); Red Blood Count 3.21 MC/CUMM (3.8-5.5); Red Cell Distribution Width 12.8 % (9.3-17.3); White Blood Count 8.9 T/CUMM (4-12)
[2020-11-24 05:54] LABS: Calcium 8.8 MG/DL (8.5-10.1); Osmolality,Calculated 282.5 MOS/KG (273-304); Potassium 4.2 MMOL/L (3.5-5.1)
[2020-11-24] MEDS: BUDESONIDE/FORMOTEROL 160-4.5 INHALER 6 GM INH SCH ×2 (08:30→20:13)
[2020-11-24] MEDS: PHENYTOIN ER 100 MG CAPSULE PO SCH ×3 (08:47→20:12)
[2020-11-24] MEDS: DULoxetine 20 MG CAPSULE PO SCH (08:47)
[2020-11-24] MEDS: hydroCHLOROthiazide 12.5 MG CAPSULE PO SCH (08:47)
[2020-11-24] MEDS: ALPRAZolam 0.5 MG TABLET PO SCH ×3 (08:48→20:13)
[2020-11-24] MEDS: MULTIVITAMIN (CENTRUM) TABLET PO SCH (08:48)
[2020-11-24] MEDS: predniSONE 20 MG TABLET PO SCH (08:48)
[2020-11-24] MEDS: NAPROXEN 500 MG TABLET PO PRN (08:49)
[2020-11-24] MEDS: NICOTINE 21 MG/24 HR PATCH TRANSDERM SCH (08:50)
[2020-11-24] MEDS ORDERED: predniSONE 10 MG TABLET PO SCH (09:00)
[2020-11-24] MEDS ORDERED: ALBUTEROL/IPRATROPIUM 3 ML NEB RESP TX ONE (11:24)
[2020-11-24] MEDS ORDERED: ACETYLCYSTEINE 20% 800 MG/4 ML VIAL ONE (11:31)
[2020-11-24] MEDS: ALBUTEROL/IPRATROPIUM 3 ML NEB RESP TX SCH ×2 (11:34→19:32)
[2020-11-24] MEDS: ACETYLCYSTEINE 20% 800 MG/4 ML VIAL RESP TX SCH ×2 (11:34→19:32)
[2020-11-24] MEDS: ESCITALOPRAM 10 MG TABLET PO SCH (20:12)
[2020-11-24] MEDS: ACETAMINOPHEN 325 MG TABLET PO PRN (22:34)
[2020-11-25] MEDS: ACETYLCYSTEINE 20% 800 MG/4 ML VIAL RESP TX SCH ×3 (00:45→19:35)
[2020-11-25] MEDS: ALBUTEROL/IPRATROPIUM 3 ML NEB RESP TX SCH ×4 (00:45→19:35)
[2020-11-25] MEDS: HydrOXYzine PAMOATE 25 MG CAPSULE PO PRN ×2 (02:50→21:45)
[2020-11-25] MEDS: NAPROXEN 500 MG TABLET PO PRN (02:50)
[2020-11-25] MEDS: MULTIVITAMIN (CENTRUM) TABLET PO SCH (08:02)
[2020-11-25] MEDS: hydroCHLOROthiazide 12.5 MG CAPSULE PO SCH (08:02)
[2020-11-25] MEDS: predniSONE 20 MG TABLET PO SCH (08:03)
[2020-11-25] MEDS: DULoxetine 20 MG CAPSULE PO SCH (08:03)
[2020-11-25] MEDS: PHENYTOIN ER 100 MG CAPSULE PO SCH ×3 (08:03→21:44)
[2020-11-25] MEDS: ACETAMINOPHEN 325 MG TABLET PO PRN (08:03)
[2020-11-25] MEDS: ALPRAZolam 0.5 MG TABLET PO SCH ×3 (08:03→21:45)
[2020-11-25] MEDS: BUDESONIDE/FORMOTEROL 160-4.5 INHALER 6 GM INH SCH ×2 (08:03→21:55)
[2020-11-25] MEDS: NICOTINE 21 MG/24 HR PATCH TRANSDERM SCH (08:05)
[2020-11-25] MEDS: DOXYCYCLINE HYCLATE 100 MG CAPSULE PO SCH (09:29)
[2020-11-25] MEDS: ESCITALOPRAM 10 MG TABLET PO SCH (21:45)
[2020-11-26] MEDS: ALBUTEROL/IPRATROPIUM 3 ML NEB RESP TX SCH ×2 (00:45→07:18)
[2020-11-26] MEDS: ACETYLCYSTEINE 20% 800 MG/4 ML VIAL RESP TX SCH ×3 (00:45→08:01)
[2020-11-26] MEDS: ALBUTEROL 2.5 MG/3 ML NEB RESP TX PRN (04:55)
[2020-11-26] MEDS: NAPROXEN 500 MG TABLET PO PRN (06:08)
[2020-11-26] MEDS: hydroCHLOROthiazide 12.5 MG CAPSULE PO SCH (08:02)
[2020-11-26] MEDS: DOXYCYCLINE HYCLATE 100 MG CAPSULE PO SCH (08:02)
[2020-11-26] MEDS: BUDESONIDE/FORMOTEROL 160-4.5 INHALER 6 GM INH SCH (08:02)
[2020-11-26] MEDS: MULTIVITAMIN (CENTRUM) TABLET PO SCH (08:02)
[2020-11-26] MEDS: predniSONE 20 MG TABLET PO SCH (08:02)
[2020-11-26] MEDS: NICOTINE 21 MG/24 HR PATCH TRANSDERM SCH (08:02)
[2020-11-26] MEDS: DULoxetine 20 MG CAPSULE PO SCH (08:02)
[2020-11-26] MEDS: PHENYTOIN ER 100 MG CAPSULE PO SCH (08:02)
[2020-11-26] MEDS: ALPRAZolam 0.5 MG TABLET PO SCH (08:02)
[2020-11-26 08:26] VITALS: BP 186/83
== END 2020-11-26 11:35 | disposition home or self-care (01) | DRG 140 ==
LOC: EDUNIT# → EDBD → N.ED 08:10 → N.EDINP 08:10 → N.5E 16:23
PROVIDERS: ADMIT Internal Medicine Geriatric Medicine; ATTEND Internal Medicine Geriatric Medicine

== ENCOUNTER 2020-11-28 21:57 | Inpatient (IN) ==
[2020-11-28] MEDS ORDERED: ALBUTEROL 2.5 MG/3 ML NEB RESP TX STA (22:21)
[2020-11-28] MEDS ORDERED: methylPREDNISolone SOD SUC 125 MG/2 ML VIAL IV STA (22:21)
[2020-11-28 22:35] LABS: Basophils # 0.1 10*3/uL (0.0-0.2); Basophils % 0.4 % (0.0-0.8); Eosinophils # 0.2 10*3/uL (0.0-0.87); Eosinophils % 1.4 % (0.00-10.9); Hematocrit 36.1 VOL% (35.7-47.0); Immature Granulocytes % 0.7 %; Immature Granulocytes Absolute 0.09 #; Lymphocytes # 3.3 10*3/uL (1.4-4.0); Lymphocytes % 24.2 % (21.3-54.2); Mean Corpuscular HGB Conc 30.5 GM/DL (32-36); Mean Corpuscular Volume 104.9 FL (87-102); Mean Platelet Volume 9.2 FL (9.6-12.0); Neutrophils % 62.3 % (38.7-73.9); Platelet Count 365 T/CUMM (130-400); Red Blood Count 3.44 MC/CUMM (3.8-5.5); Red Cell Distribution Width 12.8 % (9.3-17.3); White Blood Count 13.5 T/CUMM (4-12)
[2020-11-28 22:38] LABS: Allen Test Positive; Pt O2 Delivery Device CPAP
[2020-11-28 22:39] LABS: ABG Base Excess 2.7 MMOL/L (-2.5-2.5); ABG HCO3 32.6 MMOL/L (20-26); ABG Oxygen Saturation 96.2 % (95-100); ABG PO2 102.7 MM HG (80-95); ABG TCO2 35.2 MMOL/L (23-27)
[2020-11-28 22:43] LABS: ABG PH 7.207 (7.35-7.45)
[2020-11-28 22:50] LABS: Alanine Aminotransferase 22 U/L (13-56); Albumin 3.5 G/DL (3.4-5.0); Alkaline Phosphatase 71 U/L (45-117); Aspartate Amino Transferase 16 U/L (0-37); Bilirubin,Total < 0.39 MG/DL (0.2-1.0); Blood Urea Nitrogen 39 MG/DL (7-18); Calcium 8.9 MG/DL (8.5-10.1); Carbon Dioxide 28 MMOL/L (21-32); Estimated Glom Filtration Rate 41 ML/MIN; Glucose 150 MG/DL (74-106); Osmolality,Calculated 284.8 MOS/KG (273-304); Potassium 5.1 MMOL/L (3.5-5.1); Sodium 137 MMOL/L (136-145); Total Protein 7.5 G/DL (6.4-8.3)
[2020-11-28 22:53] LABS: INR 0.9
[2020-11-28 23:24] LABS: Allen Test Positive; Pt O2 Delivery Device BIPAP
[2020-11-28 23:29] LABS: ABG HCO3 25.8 MMOL/L (20-26); ABG PCO2 66.3 MM HG (35-48); ABG PH 7.268 (7.35-7.45)
[2020-11-28 23:30] LABS: ABG TCO2 27.7 MMOL/L (23-27)
[2020-11-28 23:32] LABS: ABG Base Excess 1.6 MMOL/L (-2.5-2.5); ABG Oxygen Saturation 98.4 % (95-100)
[2020-11-29] MEDS ORDERED: LORazepam 2 MG/1 ML VIAL IV STA ×2 (03:40→10:07)
[2020-11-29] MEDS ORDERED: LORazepam 2 MG/1 ML VIAL ONE ×2 (03:42→10:06)
[2020-11-29] MEDS ORDERED: ALBUTEROL 2.5 MG/3 ML NEB RESP TX PRN (03:47)
[2020-11-29] MEDS ORDERED: SODIUM CHLORIDE 0.65% NASAL SPRAY 45 ML BOTTLE BOTH NARES PRN (03:54)
[2020-11-29] MEDS ORDERED: NAPROXEN 500 MG TABLET PO PRN (03:54)
[2020-11-29] MEDS ORDERED: ACETAMINOPHEN 325 MG TABLET PO PRN (03:57)
[2020-11-29] MEDS ORDERED: GLUCAGON 1 MG VIAL IM PRN (03:57)
[2020-11-29] MEDS ORDERED: ONDANSETRON 4 MG/2 ML VIAL IV PRN (03:57)
[2020-11-29] MEDS ORDERED: DOCUSATE SODIUM 100 MG CAPSULE PO PRN (03:57)
[2020-11-29] MEDS ORDERED: DEXTROSE 50% 25 GM/50 ML VIAL IV PRN (03:57)
[2020-11-29] MEDS: SODIUM CHLORIDE 0.9% 1,000 ML IV SCH ×4 (05:20→23:33)
[2020-11-29] MEDS: methylPREDNISolone SOD SUC 40 MG/1 ML VIAL IV SCH ×3 (05:21→21:12)
[2020-11-29] MEDS: PIPERACILLIN/TAZOBACTAM 3,375 MG in SODIUM CHLORIDE 0.9% 100 ML IV SCH ×3 (05:26→21:12)
[2020-11-29] MEDS: ENOXAPARIN 40 MG/0.4 ML SYRINGE SUBCUT SCH (05:27)
[2020-11-29 07:27] LABS: Basophils % 0.2 % (0.0-0.8); Hematocrit 30.6 VOL% (35.7-47.0); Hemoglobin 9.9 GM/DL (12.0-16.0); Immature Granulocytes % 0.6 %; Immature Granulocytes Absolute 0.03 #; Lymphocytes # 0.6 10*3/uL (1.4-4.0); Lymphocytes % 11.1 % (21.3-54.2); Mean Corpuscular HGB Conc 32.4 GM/DL (32-36); Mean Corpuscular Volume 99.7 FL (87-102); Monocytes % 2.4 % (1.7-12.7); Neutrophils % 85.7 % (38.7-73.9); Platelet Count 216 T/CUMM (130-400); Red Blood Count 3.07 MC/CUMM (3.8-5.5); Red Cell Distribution Width 12.7 % (9.3-17.3); White Blood Count 5.1 T/CUMM (4-12)
[2020-11-29] MEDS: ALBUTEROL/IPRATROPIUM 3 ML NEB RESP TX SCH ×3 (07:28→19:54)
[2020-11-29 07:49] LABS: Calcium 8.8 MG/DL (8.5-10.1); Potassium 4.8 MMOL/L (3.5-5.1)
[2020-11-29] MEDS: ALPRAZolam 0.5 MG TABLET PO SCH ×3 (09:25→21:13)
[2020-11-29] MEDS: PHENYTOIN ER 100 MG CAPSULE PO SCH ×3 (09:25→21:13)
[2020-11-29] MEDS: DULoxetine 20 MG CAPSULE PO SCH (09:25)
[2020-11-29] MEDS: NICOTINE 21 MG/24 HR PATCH TRANSDERM SCH (09:26)
[2020-11-29] MEDS: MULTIVITAMIN (CENTRUM) TABLET PO SCH (09:26)
[2020-11-29] MEDS: PANTOPRAZOLE 40 MG TABLET PO SCH (09:26)
[2020-11-29] MEDS: hydrALAZINE 20 MG/1 ML VIAL IV PRN (09:45)
[2020-11-29] MEDS ORDERED: LORazepam 2 MG/1 ML VIAL IV ONE (10:02)
[2020-11-29] MEDS ORDERED: MORPHINE 4 MG/1 ML VIAL IV STA (10:05)
[2020-11-29] MEDS ORDERED: hydrALAZINE 20 MG/1 ML VIAL IV STA (10:06)
[2020-11-29 10:08] LABS: Troponin I 0.199 NG/ML (0.00-0.045)
[2020-11-29] MEDS ORDERED: LEVALBUTEROL 0.31 MG/3 ML NEB RESP TX PRN (10:08)
[2020-11-29] MEDS ORDERED: DILTIAZEM 25 MG/5 ML VIAL IV STA (10:10)
[2020-11-29 10:27] LABS: ABG Base Excess 1.7 MMOL/L (-2.5-2.5); ABG HCO3 25.8 MMOL/L (20-26); ABG Oxygen Saturation 96.1 % (95-100); ABG PO2 93.2 MM HG (80-95); ABG TCO2 27.1 MMOL/L (23-27)
[2020-11-29 19:14] LABS: Allen Test Positive
[2020-11-29 19:16] LABS: ABG Base Excess 6.6 MMOL/L (-2.5-2.5); ABG HCO3 32.9 MMOL/L (20-26); ABG Oxygen Saturation 97.7 % (95-100); ABG PCO2 57.4 MM HG (35-48); ABG PH 7.376 (7.35-7.45); ABG PO2 117.6 MM HG (80-95); ABG TCO2 34.7 MMOL/L (23-27)
[2020-11-29] MEDS: ESCITALOPRAM 10 MG TABLET PO SCH (21:13)
[2020-11-30] MEDS: ALBUTEROL/IPRATROPIUM 3 ML NEB RESP TX SCH ×4 (00:23→21:07)
[2020-11-30] MEDS ORDERED: LORazepam 2 MG/1 ML VIAL IV ONE (03:53)
[2020-11-30] MEDS: ENOXAPARIN 40 MG/0.4 ML SYRINGE SUBCUT SCH (03:55)
[2020-11-30] MEDS: PIPERACILLIN/TAZOBACTAM 3,375 MG in SODIUM CHLORIDE 0.9% 100 ML IV SCH ×3 (04:27→21:07)
[2020-11-30 05:03] LABS: ABG Base Excess 2.4 MMOL/L (-2.5-2.5); ABG HCO3 28.1 MMOL/L (20-26); ABG Oxygen Saturation 96.7 % (95-100); ABG PH 7.377 (7.35-7.45); ABG PO2 95.5 MM HG (80-95); ABG TCO2 29.6 MMOL/L (23-27); Allen Test Positive
[2020-11-30 05:05] LABS: Basophils % 0.2 % (0.0-0.8); Hematocrit 29.8 VOL% (35.7-47.0); Hemoglobin 9.2 GM/DL (12.0-16.0); Immature Granulocytes % 0.2 %; Immature Granulocytes Absolute 0.01 #; Lymphocytes % 18.1 % (21.3-54.2); Mean Corpuscular HGB Conc 30.9 GM/DL (32-36); Mean Corpuscular Volume 103.8 FL (87-102); Mean Platelet Volume 8.8 FL (9.6-12.0); Monocytes % 4.4 % (1.7-12.7); Neutrophils % 77.1 % (38.7-73.9); Platelet Count 220 T/CUMM (130-400); Red Blood Count 2.87 MC/CUMM (3.8-5.5); Red Cell Distribution Width 12.5 % (9.3-17.3); White Blood Count 5.5 T/CUMM (4-12)
[2020-11-30] MEDS: methylPREDNISolone SOD SUC 40 MG/1 ML VIAL IV SCH ×3 (05:19→21:05)
[2020-11-30 05:27] LABS: Albumin 2.8 G/DL (3.4-5.0); Bilirubin,Total 0.6 MG/DL (0.2-1.0); Calcium 7.5 MG/DL (8.5-10.1); Osmolality,Calculated 284.4 MOS/KG (273-304); Total Protein 5.7 G/DL (6.4-8.3)
[2020-11-30] MEDS: NICOTINE 21 MG/24 HR PATCH TRANSDERM SCH (08:38)
[2020-11-30] MEDS: DULoxetine 20 MG CAPSULE PO SCH (08:38)
[2020-11-30] MEDS: PHENYTOIN ER 100 MG CAPSULE PO SCH ×3 (08:38→21:06)
[2020-11-30] MEDS: ALPRAZolam 0.5 MG TABLET PO SCH ×3 (08:38→21:06)
[2020-11-30] MEDS: PANTOPRAZOLE 40 MG TABLET PO SCH (08:39)
[2020-11-30] MEDS: MULTIVITAMIN (CENTRUM) TABLET PO SCH (08:39)
[2020-11-30 10:20] LABS: Troponin I 0.026 NG/ML (0.00-0.045)
[2020-11-30] MEDS: ACETAMINOPHEN/CODEINE 300-30 MG TABLET PO PRN ×2 (12:09→21:05)
[2020-11-30] MEDS: hydrALAZINE 20 MG/1 ML VIAL IV PRN ×2 (13:25→13:31)
[2020-11-30] MEDS: SODIUM CHLORIDE 0.9% 1,000 ML IV SCH (14:05)
[2020-11-30] MEDS: ALBUTEROL 2.5 MG/3 ML NEB RESP TX PRN (18:01)
[2020-11-30] MEDS: ESCITALOPRAM 10 MG TABLET PO SCH (21:06)
[2020-12-01] MEDS: ALBUTEROL/IPRATROPIUM 3 ML NEB RESP TX SCH ×4 (00:20→19:28)
[2020-12-01] MEDS: HydrOXYzine PAMOATE 25 MG CAPSULE PO PRN ×2 (03:13→21:02)
[2020-12-01] MEDS: ACETAMINOPHEN/CODEINE 300-30 MG TABLET PO PRN (03:13)
[2020-12-01] MEDS: PIPERACILLIN/TAZOBACTAM 3,375 MG in SODIUM CHLORIDE 0.9% 100 ML IV SCH ×3 (05:00→22:05)
[2020-12-01] MEDS: ENOXAPARIN 40 MG/0.4 ML SYRINGE SUBCUT SCH (05:00)
[2020-12-01] MEDS: methylPREDNISolone SOD SUC 40 MG/1 ML VIAL IV SCH ×3 (05:00→21:02)
[2020-12-01] MEDS: ALBUTEROL 2.5 MG/3 ML NEB RESP TX PRN ×2 (05:10→11:15)
[2020-12-01 06:36] LABS: Basophils % 0.1 % (0.0-0.8); Eosinophils % 0.1 % (0.00-10.9); Hematocrit 31.6 VOL% (35.7-47.0); Immature Granulocytes % 0.4 %; Immature Granulocytes Absolute 0.03 #; Lymphocytes # 2.1 10*3/uL (1.4-4.0); Lymphocytes % 28.7 % (21.3-54.2); Mean Corpuscular HGB Conc 31.6 GM/DL (32-36); Mean Corpuscular Volume 102.3 FL (87-102); Mean Platelet Volume 9.1 FL (9.6-12.0); Monocytes % 8.4 % (1.7-12.7); Neutrophils % 62.3 % (38.7-73.9); Platelet Count 277 T/CUMM (130-400); Red Blood Count 3.09 MC/CUMM (3.8-5.5); Red Cell Distribution Width 12.7 % (9.3-17.3); White Blood Count 7.3 T/CUMM (4-12)
[2020-12-01 07:08] LABS: Calcium 8.9 MG/DL (8.5-10.1); Osmolality,Calculated 275.7 MOS/KG (273-304); Potassium 4.2 MMOL/L (3.5-5.1)
[2020-12-01] MEDS: MULTIVITAMIN (CENTRUM) TABLET PO SCH (08:58)
[2020-12-01] MEDS: DULoxetine 20 MG CAPSULE PO SCH (08:58)
[2020-12-01] MEDS: PHENYTOIN ER 100 MG CAPSULE PO SCH ×3 (08:58→21:01)
[2020-12-01] MEDS: PANTOPRAZOLE 40 MG TABLET PO SCH (08:58)
[2020-12-01] MEDS: ALPRAZolam 0.5 MG TABLET PO SCH ×3 (08:58→21:01)
[2020-12-01] MEDS: NICOTINE 21 MG/24 HR PATCH TRANSDERM SCH (08:59)
[2020-12-01] MEDS ORDERED: amLODIPine 2.5 MG TABLET PO SCH (09:00)
[2020-12-01] MEDS: hydrALAZINE 20 MG/1 ML VIAL IV PRN (09:01)
[2020-12-01] MEDS ORDERED: amLODIPine 5 MG TABLET PO SCH ×2 (12:52→12:54)
[2020-12-01] MEDS: METOPROLOL TARTRATE 25 MG TABLET PO SCH ×2 (13:53→21:01)
[2020-12-01] MEDS: ESCITALOPRAM 10 MG TABLET PO SCH (21:01)
[2020-12-02] MEDS: ALBUTEROL/IPRATROPIUM 3 ML NEB RESP TX SCH ×3 (00:55→14:00)
[2020-12-02] MEDS: ENOXAPARIN 40 MG/0.4 ML SYRINGE SUBCUT SCH (03:50)
[2020-12-02] MEDS: HydrOXYzine PAMOATE 25 MG CAPSULE PO PRN (04:24)
[2020-12-02] MEDS: PIPERACILLIN/TAZOBACTAM 3,375 MG in SODIUM CHLORIDE 0.9% 100 ML IV SCH ×2 (05:07→14:26)
[2020-12-02] MEDS: methylPREDNISolone SOD SUC 40 MG/1 ML VIAL IV SCH ×2 (05:07→14:27)
[2020-12-02] MEDS: ALBUTEROL 2.5 MG/3 ML NEB RESP TX PRN (07:46)
[2020-12-02] MEDS: NICOTINE 21 MG/24 HR PATCH TRANSDERM SCH (08:22)
[2020-12-02] MEDS: MULTIVITAMIN (CENTRUM) TABLET PO SCH (08:23)
[2020-12-02] MEDS: ALPRAZolam 0.5 MG TABLET PO SCH (08:23)
[2020-12-02] MEDS: METOPROLOL TARTRATE 25 MG TABLET PO SCH (08:23)
[2020-12-02] MEDS: DULoxetine 20 MG CAPSULE PO SCH (08:23)
[2020-12-02] MEDS: PHENYTOIN ER 100 MG CAPSULE PO SCH (08:24)
[2020-12-02] MEDS: PANTOPRAZOLE 40 MG TABLET PO SCH (08:25)
[2020-12-02 11:35] VITALS: BP 122/67
== END 2020-12-02 14:49 | disposition home or self-care (01) | DRG 140 ==
LOC: EDBD → EDUNIT# → N.ED 21:57 → N.EDINP 11-29 03:01 → N.4E 11-29 04:44 → N.CC 11-29 11:12 → N.5E 11-30 16:16
PROVIDERS: ADMIT Internal Medicine; ATTEND Internal Medicine

== ENCOUNTER 2020-12-06 03:18 | Inpatient (IN) ==
[2020-12-06] MEDS ORDERED: methylPREDNISolone SOD SUC 125 MG/2 ML VIAL IV STA (03:37)
[2020-12-06] MEDS ORDERED: ALBUTEROL/IPRATROPIUM 3 ML NEB RESP TX STA (03:37)
[2020-12-06] MEDS ORDERED: ONDANSETRON 4 MG/2 ML VIAL IV STA (03:37)
[2020-12-06] MEDS ORDERED: LORazepam 2 MG/1 ML VIAL IV STA (03:40)
[2020-12-06 03:47] LABS: Basophils % 0.2 % (0.0-0.8); Eosinophils # 0.1 10*3/uL (0.0-0.87); Eosinophils % 0.7 % (0.00-10.9); Hematocrit 35.8 VOL% (35.7-47.0); Hemoglobin 10.7 GM/DL (12.0-16.0); Immature Granulocytes % 0.6 %; Immature Granulocytes Absolute 0.09 #; Lymphocytes # 1.5 10*3/uL (1.4-4.0); Lymphocytes % 11.1 % (21.3-54.2); Mean Corpuscular HGB Conc 29.9 GM/DL (32-36); Mean Corpuscular Volume 106.5 FL (87-102); Mean Platelet Volume 8.9 FL (9.6-12.0); Monocytes % 6.1 % (1.7-12.7); Neutrophils % 81.3 % (38.7-73.9); Platelet Count 393 T/CUMM (130-400); Red Blood Count 3.36 MC/CUMM (3.8-5.5); White Blood Count 13.9 T/CUMM (4-12)
[2020-12-06 03:59] LABS: Alanine Aminotransferase 21 U/L (13-56); Albumin 3.6 G/DL (3.4-5.0); Alkaline Phosphatase 62 U/L (45-117); Aspartate Amino Transferase 18 U/L (0-37); Bilirubin,Total < 0.39 MG/DL (0.2-1.0); Blood Urea Nitrogen 33 MG/DL (7-18); Calcium 8.3 MG/DL (8.5-10.1); Carbon Dioxide 33 MMOL/L (21-32); Estimated Glom Filtration Rate 74 ML/MIN; Glucose 132 MG/DL (74-106); Osmolality,Calculated 285.5 MOS/KG (273-304); Potassium 5.6 MMOL/L (3.5-5.1); Sodium 139 MMOL/L (136-145); Total Protein 7.3 G/DL (6.4-8.3)
[2020-12-06] MEDS ORDERED: ALBUTEROL NEB SOLN 5 MG/ML 20 ML/BOTTLE CONT NEB SCH (04:00)
[2020-12-06 04:05] LABS: INR 0.9
[2020-12-06 04:11] LABS: ABG Base Excess 1.3 MMOL/L (-2.5-2.5); ABG HCO3 32.2 MMOL/L (20-26)
[2020-12-06 04:16] LABS: ABG PH 7.154 (7.35-7.45)
[2020-12-06] MEDS ORDERED: VECURONIUM 10 MG VIAL IV ONE (04:19)
[2020-12-06] MEDS ORDERED: ETOMIDATE 20 MG/10 ML VIAL IV ONE (04:19)
[2020-12-06] MEDS ORDERED: SODIUM BICARBONATE 50 MEQ/50 ML VIAL IV STA (04:33)
[2020-12-06] MEDS ORDERED: SODIUM CHLORIDE 0.9% 1,000 ML IV STA (05:06)
[2020-12-06] MEDS ORDERED: VECURONIUM 10 MG VIAL IV STA (05:07)
[2020-12-06] MEDS ORDERED: SODIUM CHLORIDE 0.9% 250 ML IV STA (05:12)
[2020-12-06 05:16] LABS: Bilirubin,Urine Negative (Negative); Blood, Urine Negative (Negative); Glucose,Urine (UA) Negative (Negative); Ketones,Urine Negative (Negative); Mucus,Urine Occasional /LPF (Occasional); Nitrite,Urine Negative (Negative); Protein,Urine Negative; RBC,Urine <1 /HPF (0-4); Squamous Epithelial Cell,Urine Occasional /HPF (0-10); Urine Appearance CLEAR (Clear); Urine Color Yellow (Yellow); Urine Specific Gravity 1.024 (1.001-1.035); Urine Urobilinogen < 2.0 EU/DL (0.2-1.0); WBC,Urine <1 /HPF (0-6)
[2020-12-06] MEDS ORDERED: FOSPHENYTOIN 1,000 MG.PE in SODIUM CHLORIDE 0.9% 250 ML IV STA (05:18)
[2020-12-06 05:31] LABS: Barbiturates Screen,Urine Negative (Negative); Benzodiazepines Screen,Urine Positive (Negative); Cannabinoid Screen,Urine Negative (Negative); Opiate Screen,Urine Positive (Negative); Phencyclidine Screen,Urine Negative (Negative)
[2020-12-06 05:35] LABS: ABG Base Excess 2.8 MMOL/L (-2.5-2.5); ABG Oxygen Saturation 99.3 % (95-100); ABG TCO2 31.7 MMOL/L (23-27)
[2020-12-06 05:38] LABS: ABG PCO2 89.2 MM HG (35-48); ABG PH 7.191 (7.35-7.45)
[2020-12-06] MEDS: MIDAZOLAM 100 MG in SODIUM CHLORIDE 0.9% 80 ML IV PRN ×2 (05:42→19:32)
[2020-12-06] MEDS ORDERED: ALBUTEROL 2.5 MG/3 ML NEB RESP TX PRN (06:06)
[2020-12-06] MEDS ORDERED: ALBUTEROL/IPRATROPIUM 3 ML NEB RESP TX PRN (06:06)
[2020-12-06] MEDS ORDERED: PHENYTOIN 100 MG/2 ML VIAL IV SCH (06:30)
[2020-12-06] MEDS ORDERED: LEVOFLOXACIN INJ 750 MG in PREMIX 1 EACH IV SCH (06:30)
[2020-12-06] MEDS ORDERED: ROCURONIUM 500 MG in SODIUM CHLORIDE 0.9% 500 ML IV PRN (06:41)
[2020-12-06] MEDS: ALBUTEROL/IPRATROPIUM 3 ML NEB RESP TX SCH ×5 (06:55→23:58)
[2020-12-06] MEDS ORDERED: methylPREDNISolone SOD SUC 40 MG/1 ML VIAL IV SCH (07:00)
[2020-12-06] MEDS ORDERED: PHENYTOIN INJ 1,000 MG in SODIUM CHLORIDE 0.9% 100 ML IV ONE (08:00)
[2020-12-06] MEDS ORDERED: NOREPINEPHRINE 8 MG in SODIUM CHLORIDE 0.9% 242 ML IV PRN (08:01)
[2020-12-06] MEDS: SODIUM CHLORIDE 0.9% 1,000 ML IV SCH ×3 (08:40→19:13)
[2020-12-06] MEDS: PANTOPRAZOLE 40 MG VIAL IV SCH (08:46)
[2020-12-06] MEDS ORDERED: BUDESONIDE/FORMOTEROL 160-4.5 INHALER 6 GM INH SCH (09:00)
[2020-12-06] MEDS: methylPREDNISolone SOD SUC 40 MG/1 ML VIAL IV SCH ×3 (10:10→21:04)
[2020-12-06] MEDS: ENOXAPARIN 40 MG/0.4 ML SYRINGE SUBCUT SCH (10:10)
[2020-12-06] MEDS: cefTRIAXone 1,000 MG in SYRINGE 1 EACH IV SCH (10:19)
[2020-12-06] MEDS ORDERED: FOSPHENYTOIN 1,000 MG.PE in SODIUM CHLORIDE 0.9% 250 ML IV ONE (18:39)
[2020-12-07 03:15] LABS: ABG Base Excess 1.7 MMOL/L (-2.5-2.5); ABG HCO3 25.9 MMOL/L (20-26); ABG Oxygen Saturation 99.9 % (95-100); ABG PCO2 33.9 MM HG (35-48); ABG PH 7.475 (7.35-7.45)
[2020-12-07] MEDS: ALBUTEROL/IPRATROPIUM 3 ML NEB RESP TX SCH ×6 (03:40→23:50)
[2020-12-07] MEDS: methylPREDNISolone SOD SUC 40 MG/1 ML VIAL IV SCH ×4 (04:28→20:28)
[2020-12-07 04:50] LABS: Basophils % 0.1 % (0.0-0.8); Hematocrit 27.8 VOL% (35.7-47.0); Hemoglobin 8.5 GM/DL (12.0-16.0); Immature Granulocytes % 0.4 %; Immature Granulocytes Absolute 0.03 #; Lymphocytes # 1.5 10*3/uL (1.4-4.0); Mean Corpuscular HGB Conc 30.6 GM/DL (32-36); Mean Corpuscular Volume 103.7 FL (87-102); Mean Platelet Volume 8.9 FL (9.6-12.0); Monocytes % 8.3 % (1.7-12.7); Neutrophils % 70.2 % (38.7-73.9); Platelet Count 228 T/CUMM (130-400); Red Blood Count 2.68 MC/CUMM (3.8-5.5); Red Cell Distribution Width 13.3 % (9.3-17.3); White Blood Count 7.3 T/CUMM (4-12)
[2020-12-07 05:05] LABS: Alanine Aminotransferase 51 U/L (13-56); Albumin 2.6 G/DL (3.4-5.0); Alkaline Phosphatase 70 U/L (45-117); Aspartate Amino Transferase 32 U/L (0-37); Bilirubin,Total < 0.39 MG/DL (0.2-1.0); Blood Urea Nitrogen 31 MG/DL (7-18); Calcium 7.9 MG/DL (8.5-10.1); Carbon Dioxide 26 MMOL/L (21-32); Estimated Glom Filtration Rate 61 ML/MIN; Glucose 141 MG/DL (74-106); Potassium 4.5 MMOL/L (3.5-5.1); Sodium 143 MMOL/L (136-145); Total Protein 5.6 G/DL (6.4-8.3)
[2020-12-07] MEDS: SODIUM CHLORIDE 0.9% 1,000 ML IV SCH ×3 (05:10→16:13)
[2020-12-07 05:57] LABS: ABG PCO2 93.6 MM HG (35-48)
[2020-12-07] MEDS: ENOXAPARIN 40 MG/0.4 ML SYRINGE SUBCUT SCH (08:15)
[2020-12-07] MEDS: PANTOPRAZOLE 40 MG VIAL IV SCH (08:15)
[2020-12-07] MEDS: cefTRIAXone 1,000 MG in SYRINGE 1 EACH IV SCH ×2 (08:16→09:04)
[2020-12-07] MEDS: PHENYTOIN 100 MG/2 ML VIAL IV SCH ×2 (08:30→16:12)
[2020-12-07] MEDS ORDERED: DEXTROSE 50% 25 GM/50 ML VIAL IV PRN (09:32)
[2020-12-07] MEDS ORDERED: GLUCAGON 1 MG VIAL IM PRN (09:32)
[2020-12-07] MEDS: INSULIN REGULAR 100 UNIT/ML SUBCUT SCH ×2 (11:10→17:20)
[2020-12-07] MEDS: MIDAZOLAM 100 MG in SODIUM CHLORIDE 0.9% 80 ML IV PRN (18:02)
[2020-12-07] MEDS ORDERED: METOPROLOL TARTRATE 50 MG TABLET ONE (20:06)
[2020-12-07] MEDS: ALPRAZolam 0.5 MG TABLET PO SCH (20:27)
[2020-12-07] MEDS: ESCITALOPRAM 10 MG TABLET PO SCH (20:28)
[2020-12-07] MEDS: METOPROLOL TARTRATE 25 MG TABLET PO SCH (20:28)
[2020-12-08] MEDS: INSULIN REGULAR 100 UNIT/ML SUBCUT SCH ×4 (00:25→17:42)
[2020-12-08] MEDS: PHENYTOIN 100 MG/2 ML VIAL IV SCH ×2 (00:26→08:00)
[2020-12-08] MEDS: SODIUM CHLORIDE 0.9% 1,000 ML IV SCH ×4 (02:00→17:44)
[2020-12-08] MEDS: ALBUTEROL/IPRATROPIUM 3 ML NEB RESP TX SCH ×6 (03:19→23:54)
[2020-12-08 04:35] LABS: ABG Base Excess 0.1 MMOL/L (-2.5-2.5); ABG HCO3 24.5 MMOL/L (20-26); ABG Oxygen Saturation 96.3 % (95-100); ABG PCO2 42.2 MM HG (35-48); ABG PH 7.385 (7.35-7.45); ABG PO2 86.5 MM HG (80-95); ABG TCO2 22.3 MMOL/L (23-27); Allen Test Positive; Pt O2 Delivery Device Ventilator
[2020-12-08] MEDS: methylPREDNISolone SOD SUC 40 MG/1 ML VIAL IV SCH ×3 (04:35→20:02)
[2020-12-08] MEDS: PANTOPRAZOLE 40 MG VIAL IV SCH (06:38)
[2020-12-08] MEDS: DULoxetine 20 MG CAPSULE PO SCH (08:05)
[2020-12-08] MEDS: ENOXAPARIN 40 MG/0.4 ML SYRINGE SUBCUT SCH (08:06)
[2020-12-08] MEDS: METOPROLOL TARTRATE 25 MG TABLET PO SCH ×2 (08:06→20:04)
[2020-12-08] MEDS: ALPRAZolam 0.5 MG TABLET PO SCH ×3 (08:06→20:03)
[2020-12-08] MEDS: cefTRIAXone 1,000 MG in SYRINGE 1 EACH IV SCH (08:07)
[2020-12-08] MEDS: PHENYTOIN 100 MG/4 ML UDCUP PER TUBE SCH ×3 (08:58→20:01)
[2020-12-08] MEDS: MIDAZOLAM 100 MG in SODIUM CHLORIDE 0.9% 80 ML IV PRN (15:20)
[2020-12-08] MEDS: amLODIPine 10 MG TABLET PER TUBE SCH (18:26)
[2020-12-08] MEDS: ESCITALOPRAM 10 MG TABLET PO SCH (20:02)
[2020-12-08] MEDS ORDERED: fentaNYL 100 MCG/2 ML VIAL IV PRN (20:42)
[2020-12-09] MEDS: INSULIN REGULAR 100 UNIT/ML SUBCUT SCH ×4 (00:42→17:50)
[2020-12-09] MEDS: SODIUM CHLORIDE 0.9% 1,000 ML IV SCH ×5 (01:42→23:14)
[2020-12-09] MEDS: ALBUTEROL/IPRATROPIUM 3 ML NEB RESP TX SCH ×5 (03:01→19:47)
[2020-12-09 04:36] LABS: ABG Base Excess 6.7 MMOL/L (-2.5-2.5); ABG HCO3 31.4 MMOL/L (20-26); ABG PCO2 45.6 MM HG (35-48); ABG PH 7.456 (7.35-7.45); ABG PO2 76.2 MM HG (80-95); ABG TCO2 32.8 MMOL/L (23-27); Allen Test Positive; Pt O2 Delivery Device Ventilator
[2020-12-09 04:38] LABS: Basophils % 0.1 % (0.0-0.8); Eosinophils % 0.1 % (0.00-10.9); Hematocrit 30.2 VOL% (35.7-47.0); Hemoglobin 9.5 GM/DL (12.0-16.0); Immature Granulocytes % 0.6 %; Immature Granulocytes Absolute 0.05 #; Lymphocytes % 24.3 % (21.3-54.2); Mean Corpuscular HGB Conc 31.5 GM/DL (32-36); Mean Corpuscular Volume 101.7 FL (87-102); Mean Platelet Volume 8.7 FL (9.6-12.0); Monocytes % 7.9 % (1.7-12.7); Platelet Count 231 T/CUMM (130-400); Red Blood Count 2.97 MC/CUMM (3.8-5.5); Red Cell Distribution Width 12.9 % (9.3-17.3)
[2020-12-09 05:02] LABS: Calcium 8.4 MG/DL (8.5-10.1); Osmolality,Calculated 282.3 MOS/KG (273-304); Potassium 3.5 MMOL/L (3.5-5.1)
[2020-12-09] MEDS: PANTOPRAZOLE 40 MG VIAL IV SCH (06:38)
[2020-12-09] MEDS: ENOXAPARIN 40 MG/0.4 ML SYRINGE SUBCUT SCH (09:02)
[2020-12-09] MEDS: methylPREDNISolone SOD SUC 40 MG/1 ML VIAL IV SCH ×2 (09:03→20:24)
[2020-12-09] MEDS: cefTRIAXone 1,000 MG in SYRINGE 1 EACH IV SCH (09:04)
[2020-12-09] MEDS: DULoxetine 20 MG CAPSULE PO SCH (10:33)
[2020-12-09] MEDS: METOPROLOL TARTRATE 25 MG TABLET PO SCH ×2 (10:33→20:25)
[2020-12-09] MEDS: PHENYTOIN 100 MG/4 ML UDCUP PER TUBE SCH ×3 (10:33→20:27)
[2020-12-09] MEDS: amLODIPine 10 MG TABLET PER TUBE SCH (10:33)
[2020-12-09] MEDS: ALPRAZolam 0.5 MG TABLET PO SCH ×3 (10:33→20:56)
[2020-12-09] MEDS: ESCITALOPRAM 10 MG TABLET PO SCH (20:25)
[2020-12-10] MEDS: ALBUTEROL/IPRATROPIUM 3 ML NEB RESP TX SCH ×7 (00:04→23:57)
[2020-12-10] MEDS ORDERED: ACETAMINOPHEN 325 MG TABLET PO PRN ×2 (00:29→00:40)
[2020-12-10] MEDS: SODIUM CHLORIDE 0.9% 1,000 ML IV SCH (01:29)
[2020-12-10] MEDS: INSULIN REGULAR 100 UNIT/ML SUBCUT SCH ×5 (01:34→21:15)
[2020-12-10] MEDS ORDERED: traZODone 50 MG TABLET PO ONE (01:49)
[2020-12-10 04:56] LABS: Basophils % 0.2 % (0.0-0.8); Eosinophils % 0.4 % (0.00-10.9); Hematocrit 27.1 VOL% (35.7-47.0); Hemoglobin 8.7 GM/DL (12.0-16.0); Immature Granulocytes % 0.4 %; Immature Granulocytes Absolute 0.02 #; Lymphocytes # 1.7 10*3/uL (1.4-4.0); Lymphocytes % 30.4 % (21.3-54.2); Mean Corpuscular HGB Conc 32.1 GM/DL (32-36); Mean Corpuscular Volume 99.3 FL (87-102); Mean Platelet Volume 8.8 FL (9.6-12.0); Monocytes % 7.5 % (1.7-12.7); Neutrophils % 61.1 % (38.7-73.9); Platelet Count 203 T/CUMM (130-400); Red Blood Count 2.73 MC/CUMM (3.8-5.5); Red Cell Distribution Width 12.8 % (9.3-17.3); White Blood Count 5.6 T/CUMM (4-12)
[2020-12-10 05:18] LABS: Calcium 8.7 MG/DL (8.5-10.1); Osmolality,Calculated 278.3 MOS/KG (273-304); Potassium 3.2 MMOL/L (3.5-5.1)
[2020-12-10] MEDS: PANTOPRAZOLE 40 MG VIAL IV SCH (06:56)
[2020-12-10] MEDS: DULoxetine 20 MG CAPSULE PO SCH (08:30)
[2020-12-10] MEDS: ALPRAZolam 0.5 MG TABLET PO SCH ×3 (08:30→21:14)
[2020-12-10] MEDS: NICOTINE 14 MG/24 HR PATCH TRANSDERM SCH (08:30)
[2020-12-10] MEDS: PHENYTOIN 100 MG/4 ML UDCUP PER TUBE SCH (08:30)
[2020-12-10] MEDS: ENOXAPARIN 40 MG/0.4 ML SYRINGE SUBCUT SCH (08:30)
[2020-12-10] MEDS: methylPREDNISolone SOD SUC 40 MG/1 ML VIAL IV SCH ×2 (08:31→21:15)
[2020-12-10] MEDS: METOPROLOL TARTRATE 25 MG TABLET PO SCH ×2 (08:31→21:14)
[2020-12-10] MEDS: amLODIPine 10 MG TABLET PER TUBE SCH (08:31)
[2020-12-10] MEDS: cefTRIAXone 1,000 MG in SYRINGE 1 EACH IV SCH (08:32)
[2020-12-10] MEDS ORDERED: traMADol 50 MG TABLET PO PRN (09:12)
[2020-12-10] MEDS ORDERED: POTASSIUM CHLORIDE 20 MEQ/15 ML UDCUP PER TUBE SCH (09:30)
[2020-12-10] MEDS: POTASSIUM CHLORIDE 20 MEQ TABLET PO SCH ×3 (10:11→19:05)
[2020-12-10] MEDS: PHENYTOIN ER 100 MG CAPSULE PO SCH ×2 (16:19→21:14)
[2020-12-10] MEDS: ESCITALOPRAM 10 MG TABLET PO SCH (21:14)
[2020-12-11] MEDS: ALBUTEROL/IPRATROPIUM 3 ML NEB RESP TX SCH ×6 (03:30→23:11)
[2020-12-11 06:09] LABS: Calcium 8.6 MG/DL (8.5-10.1); Osmolality,Calculated 284.1 MOS/KG (273-304)
[2020-12-11] MEDS: PANTOPRAZOLE 40 MG TABLET PO SCH (06:12)
[2020-12-11] MEDS: ENOXAPARIN 40 MG/0.4 ML SYRINGE SUBCUT SCH (09:15)
[2020-12-11] MEDS: ALPRAZolam 0.5 MG TABLET PO SCH ×3 (09:16→20:15)
[2020-12-11] MEDS: methylPREDNISolone SOD SUC 40 MG/1 ML VIAL IV SCH (09:16)
[2020-12-11] MEDS: PHENYTOIN ER 100 MG CAPSULE PO SCH ×3 (09:16→20:15)
[2020-12-11] MEDS: METOPROLOL TARTRATE 25 MG TABLET PO SCH ×2 (09:16→20:15)
[2020-12-11] MEDS: NICOTINE 14 MG/24 HR PATCH TRANSDERM SCH (09:16)
[2020-12-11] MEDS: amLODIPine 10 MG TABLET PO SCH (09:16)
[2020-12-11] MEDS: DULoxetine 20 MG CAPSULE PO SCH (09:16)
[2020-12-11] MEDS: INSULIN REGULAR 100 UNIT/ML SUBCUT SCH ×4 (09:17→21:15)
[2020-12-11] MEDS: cefTRIAXone 1,000 MG in SYRINGE 1 EACH IV SCH (09:24)
[2020-12-11] MEDS: predniSONE 20 MG TABLET PO SCH (13:40)
[2020-12-11] MEDS: ESCITALOPRAM 10 MG TABLET PO SCH (20:15)
[2020-12-12] MEDS: ALBUTEROL/IPRATROPIUM 3 ML NEB RESP TX SCH ×5 (03:03→19:10)
[2020-12-12 04:58] LABS: Calcium 8.7 MG/DL (8.5-10.1); Osmolality,Calculated 281.4 MOS/KG (273-304); Potassium 3.5 MMOL/L (3.5-5.1)
[2020-12-12] MEDS: PANTOPRAZOLE 40 MG TABLET PO SCH (06:44)
[2020-12-12] MEDS ORDERED: ALUMINUM/MAGNES/SIMETH MAX STR 30 ML UDCUP PO PRN (07:34)
[2020-12-12] MEDS: INSULIN REGULAR 100 UNIT/ML SUBCUT SCH ×4 (08:21→21:34)
[2020-12-12] MEDS: ALPRAZolam 0.5 MG TABLET PO SCH ×3 (10:00→21:33)
[2020-12-12] MEDS: PHENYTOIN ER 100 MG CAPSULE PO SCH ×3 (10:00→21:33)
[2020-12-12] MEDS: DULoxetine 20 MG CAPSULE PO SCH (10:00)
[2020-12-12] MEDS: amLODIPine 10 MG TABLET PO SCH (10:01)
[2020-12-12] MEDS: METOPROLOL TARTRATE 25 MG TABLET PO SCH ×2 (10:01→21:39)
[2020-12-12] MEDS: predniSONE 20 MG TABLET PO SCH (10:01)
[2020-12-12] MEDS: NICOTINE 14 MG/24 HR PATCH TRANSDERM SCH (15:15)
[2020-12-12] MEDS: ENOXAPARIN 40 MG/0.4 ML SYRINGE SUBCUT SCH (15:16)
[2020-12-12] MEDS: cefTRIAXone 1,000 MG in SYRINGE 1 EACH IV SCH (15:23)
[2020-12-12] MEDS: ESCITALOPRAM 10 MG TABLET PO SCH (21:33)
[2020-12-13] MEDS: ALBUTEROL/IPRATROPIUM 3 ML NEB RESP TX SCH ×4 (00:09→11:42)
[2020-12-13] MEDS: PANTOPRAZOLE 40 MG TABLET PO SCH (06:09)
[2020-12-13 08:25] VITALS: BP 141/63
[2020-12-13] MEDS ORDERED: BUDESONIDE/FORMOTEROL 160-4.5 INHALER 6 GM INH SCH (09:00)
[2020-12-13] MEDS ORDERED: FLUCONAZOLE 100 MG TABLET PO SCH (09:00)
[2020-12-13] MEDS: INSULIN REGULAR 100 UNIT/ML SUBCUT SCH (09:09)
[2020-12-13] MEDS: ALPRAZolam 0.5 MG TABLET PO SCH (09:47)
[2020-12-13] MEDS: amLODIPine 10 MG TABLET PO SCH (09:47)
[2020-12-13] MEDS: DULoxetine 20 MG CAPSULE PO SCH (09:47)
[2020-12-13] MEDS: PHENYTOIN ER 100 MG CAPSULE PO SCH (09:47)
[2020-12-13] MEDS: METOPROLOL TARTRATE 25 MG TABLET PO SCH (09:47)
[2020-12-13] MEDS: predniSONE 20 MG TABLET PO SCH (09:48)
[2020-12-13] MEDS: ENOXAPARIN 40 MG/0.4 ML SYRINGE SUBCUT SCH (09:49)
[2020-12-13] MEDS: NICOTINE 14 MG/24 HR PATCH TRANSDERM SCH (09:50)
[2020-12-13] MEDS ORDERED: FLUCONAZOLE 100 MG TABLET PO ONE (14:16)
== END 2020-12-13 12:44 | disposition home or self-care (01) | DRG 208 ==
LOC: N.ED 03:18 → N.EDINP 06:06 → SUATTDRO 06:06 → N.CC 07:45 → N.4E 12-10 11:04
PROVIDERS: ADMIT Internal Medicine; ATTEND Internal Medicine

== ENCOUNTER 2020-12-17 15:24 | Observation (INO) ==
[2020-12-17] MEDS ORDERED: methylPREDNISolone SOD SUC 125 MG/2 ML VIAL IV STA (16:01)
[2020-12-17] MEDS ORDERED: ALBUTEROL 2.5 MG/3 ML NEB RESP TX STA (16:01)
[2020-12-17] MEDS ORDERED: methylPREDNISolone SOD SUC 125 MG/2 ML VIAL ONE (16:03)
[2020-12-17 16:23] LABS: ABG Base Excess 4.7 MMOL/L (-2.5-2.5); ABG HCO3 28.7 MMOL/L (20-26); ABG Oxygen Saturation 97.6 % (95-100); ABG PCO2 64.9 MM HG (35-48); ABG PH 7.309 (7.35-7.45); ABG TCO2 30.1 MMOL/L (23-27)
[2020-12-17 16:39] LABS: Basophils % 0.3 % (0.0-0.8); Eosinophils % 0.2 % (0.00-10.9); Hematocrit 30.2 VOL% (35.7-47.0); Hemoglobin 9.4 GM/DL (12.0-16.0); Immature Granulocytes % 0.5 %; Immature Granulocytes Absolute 0.03 #; Lymphocytes # 1.6 10*3/uL (1.4-4.0); Lymphocytes % 23.9 % (21.3-54.2); Mean Corpuscular HGB Conc 31.1 GM/DL (32-36); Mean Corpuscular Volume 101.3 FL (87-102); Mean Platelet Volume 8.6 FL (9.6-12.0); Monocytes % 6.9 % (1.7-12.7); Neutrophils % 68.2 % (38.7-73.9); Platelet Count 305 T/CUMM (130-400); Red Blood Count 2.98 MC/CUMM (3.8-5.5); Red Cell Distribution Width 13.1 % (9.3-17.3); White Blood Count 6.5 T/CUMM (4-12)
[2020-12-17 17:03] LABS: Alanine Aminotransferase 24 U/L (13-56); Albumin 3.5 G/DL (3.4-5.0); Alkaline Phosphatase 69 U/L (45-117); Aspartate Amino Transferase 13 U/L (0-37); Bilirubin,Total < 0.39 MG/DL (0.2-1.0); Blood Urea Nitrogen 22 MG/DL (7-18); Calcium 8.9 MG/DL (8.5-10.1); Carbon Dioxide 34 MMOL/L (21-32); Estimated Glom Filtration Rate 74 ML/MIN; Glucose 112 MG/DL (74-106); Osmolality,Calculated 280.5 MOS/KG (273-304); Potassium 4.7 MMOL/L (3.5-5.1); Sodium 139 MMOL/L (136-145)
[2020-12-17] MEDS ORDERED: GLUCAGON 1 MG VIAL IM PRN (17:37)
[2020-12-17] MEDS ORDERED: DEXTROSE 50% 25 GM/50 ML VIAL IV PRN (17:37)
[2020-12-17] MEDS ORDERED: ACETAMINOPHEN/CODEINE 300-30 MG TABLET PO PRN (17:39)
[2020-12-17] MEDS: ALBUTEROL/IPRATROPIUM 3 ML NEB RESP TX SCH (19:10)
[2020-12-17] MEDS: ENOXAPARIN 40 MG/0.4 ML SYRINGE SUBCUT SCH (20:47)
[2020-12-17] MEDS: DOXYCYCLINE HYCLATE 100 MG CAPSULE PO SCH (20:47)
[2020-12-17] MEDS: ALPRAZolam 0.5 MG TABLET PO SCH (20:47)
[2020-12-17] MEDS: PHENYTOIN ER 100 MG CAPSULE PO SCH (20:48)
[2020-12-17] MEDS: METOPROLOL TARTRATE 25 MG TABLET PO SCH (20:48)
[2020-12-17] MEDS: LORazepam 2 MG/1 ML VIAL IV PRN (22:46)
[2020-12-17] MEDS: methylPREDNISolone SOD SUC 40 MG/1 ML VIAL IV SCH (23:17)
[2020-12-18] MEDS: ALBUTEROL/IPRATROPIUM 3 ML NEB RESP TX SCH ×4 (00:50→19:36)
[2020-12-18] MEDS: BUDESONIDE/FORMOTEROL 160-4.5 INHALER 6 GM INH SCH ×2 (01:47→08:14)
[2020-12-18] MEDS: LORazepam 2 MG/1 ML VIAL IV PRN ×3 (04:50→19:50)
[2020-12-18] MEDS: METOPROLOL TARTRATE 25 MG TABLET PO SCH ×2 (08:14→23:39)
[2020-12-18] MEDS: ALPRAZolam 0.5 MG TABLET PO SCH ×3 (08:14→23:39)
[2020-12-18] MEDS: methylPREDNISolone SOD SUC 40 MG/1 ML VIAL IV SCH ×3 (08:14→23:37)
[2020-12-18] MEDS: PANTOPRAZOLE 40 MG TABLET PO SCH (08:15)
[2020-12-18] MEDS: DULoxetine 20 MG CAPSULE PO SCH (08:15)
[2020-12-18] MEDS: DOXYCYCLINE HYCLATE 100 MG CAPSULE PO SCH ×2 (08:15→23:39)
[2020-12-18] MEDS: amLODIPine 10 MG TABLET PO SCH (08:15)
[2020-12-18] MEDS: PHENYTOIN ER 100 MG CAPSULE PO SCH ×3 (08:15→23:38)
[2020-12-18] MEDS: ACETYLCYSTEINE 20% 800 MG/4 ML VIAL RESP TX SCH ×2 (14:00→23:57)
[2020-12-18] MEDS: BUDESONIDE 0.5 MG/2 ML NEB RESP TX SCH (19:36)
[2020-12-18] MEDS: ENOXAPARIN 40 MG/0.4 ML SYRINGE SUBCUT SCH (23:38)
[2020-12-19] MEDS: ALBUTEROL/IPRATROPIUM 3 ML NEB RESP TX SCH ×4 (00:01→19:36)
[2020-12-19 04:20] LABS: ABG Base Excess 2.9 MMOL/L (-2.5-2.5); ABG Oxygen Saturation 98.2 % (95-100); ABG PH 7.363 (7.35-7.45); ABG TCO2 26.8 MMOL/L (23-27); Allen Test Positive; Pt O2 Delivery Device Venturi Mask
[2020-12-19 06:14] LABS: Basophils % 0.2 % (0.0-0.8); Eosinophils % 0.2 % (0.00-10.9); Immature Granulocytes % 0.5 %; Immature Granulocytes Absolute 0.03 #; Lymphocytes # 1.4 10*3/uL (1.4-4.0); Lymphocytes % 25.7 % (21.3-54.2); Mean Corpuscular Volume 103.4 FL (87-102); Mean Platelet Volume 8.9 FL (9.6-12.0); Monocytes % 6.3 % (1.7-12.7); Neutrophils % 67.1 % (38.7-73.9); Platelet Count 286 T/CUMM (130-400); Red Cell Distribution Width 12.4 % (9.3-17.3); White Blood Count 5.6 T/CUMM (4-12)
[2020-12-19] MEDS: LORazepam 2 MG/1 ML VIAL IV PRN (06:18)
[2020-12-19 06:49] LABS: Osmolality,Calculated 276.8 MOS/KG (273-304); Potassium 4.8 MMOL/L (3.5-5.1)
[2020-12-19] MEDS: BUDESONIDE 0.5 MG/2 ML NEB RESP TX SCH ×2 (07:34→19:36)
[2020-12-19] MEDS: ACETYLCYSTEINE 20% 800 MG/4 ML VIAL RESP TX SCH ×2 (07:34→15:40)
[2020-12-19] MEDS: methylPREDNISolone SOD SUC 40 MG/1 ML VIAL IV SCH ×2 (09:57→18:14)
[2020-12-19] MEDS: DULoxetine 20 MG CAPSULE PO SCH (10:02)
[2020-12-19] MEDS: ALPRAZolam 0.5 MG TABLET PO SCH ×3 (10:02→21:43)
[2020-12-19] MEDS: PHENYTOIN ER 100 MG CAPSULE PO SCH ×3 (10:02→21:44)
[2020-12-19] MEDS: amLODIPine 10 MG TABLET PO SCH (10:03)
[2020-12-19] MEDS: PANTOPRAZOLE 40 MG TABLET PO SCH (10:03)
[2020-12-19] MEDS: METOPROLOL TARTRATE 25 MG TABLET PO SCH ×2 (10:03→23:14)
[2020-12-19] MEDS: DOXYCYCLINE HYCLATE 100 MG CAPSULE PO SCH ×2 (10:03→21:43)
[2020-12-19 10:04] LABS: Pt O2 Delivery Device Venturi Mask
[2020-12-19 10:05] LABS: ABG Base Excess 5.7 MMOL/L (-2.5-2.5); ABG HCO3 29.6 MMOL/L (20-26); ABG Oxygen Saturation 97.2 % (95-100); ABG PCO2 51.1 MM HG (35-48); ABG PH 7.398 (7.35-7.45); ABG PO2 89.3 MM HG (80-95); ABG TCO2 28.9 MMOL/L (23-27)
[2020-12-19] MEDS: ENOXAPARIN 40 MG/0.4 ML SYRINGE SUBCUT SCH (21:44)
[2020-12-20] MEDS: ACETYLCYSTEINE 20% 800 MG/4 ML VIAL RESP TX SCH ×2 (01:30→07:25)
[2020-12-20] MEDS: ALBUTEROL/IPRATROPIUM 3 ML NEB RESP TX SCH ×2 (01:30→07:25)
[2020-12-20] MEDS: methylPREDNISolone SOD SUC 40 MG/1 ML VIAL IV SCH (01:58)
[2020-12-20] MEDS: BUDESONIDE 0.5 MG/2 ML NEB RESP TX SCH (07:25)
[2020-12-20 07:50] LABS: Basophils % 0.2 % (0.0-0.8); Hematocrit 30.1 VOL% (35.7-47.0); Hemoglobin 9.6 GM/DL (12.0-16.0); Immature Granulocytes % 0.4 %; Immature Granulocytes Absolute 0.02 #; Lymphocytes # 1.7 10*3/uL (1.4-4.0); Mean Corpuscular HGB Conc 31.9 GM/DL (32-36); Mean Corpuscular Volume 98.4 FL (87-102); Mean Platelet Volume 8.9 FL (9.6-12.0); Monocytes % 3.9 % (1.7-12.7); Neutrophils % 60.5 % (38.7-73.9); Platelet Count 281 T/CUMM (130-400); Red Blood Count 3.06 MC/CUMM (3.8-5.5); Red Cell Distribution Width 12.6 % (9.3-17.3); White Blood Count 4.9 T/CUMM (4-12)
[2020-12-20 08:12] LABS: Atypical Lymphocytes Few; Eosinophils 1 % (0-10); Lymphocytes 34 % (20-55); Segmented Neutrophils 60 % (50-85); Total Cells Counted 100
[2020-12-20 08:13] LABS: Hypochromasia 1+; Microcytosis 1+; Ovalocytes Slight; Platelet Estimate Normal
[2020-12-20 08:31] LABS: Calcium 8.8 MG/DL (8.5-10.1); Osmolality,Calculated 275.1 MOS/KG (273-304); Potassium 4.4 MMOL/L (3.5-5.1)
[2020-12-20] MEDS: PHENYTOIN ER 100 MG CAPSULE PO SCH (09:54)
[2020-12-20] MEDS: ALPRAZolam 0.5 MG TABLET PO SCH (09:54)
[2020-12-20] MEDS: amLODIPine 10 MG TABLET PO SCH (09:54)
[2020-12-20] MEDS: DULoxetine 20 MG CAPSULE PO SCH (09:55)
[2020-12-20] MEDS: DOXYCYCLINE HYCLATE 100 MG CAPSULE PO SCH (09:55)
[2020-12-20] MEDS: METOPROLOL TARTRATE 25 MG TABLET PO SCH (09:55)
[2020-12-20] MEDS: PANTOPRAZOLE 40 MG TABLET PO SCH (09:55)
[2020-12-20] MEDS ORDERED: ONDANSETRON 4 MG/2 ML VIAL IV PRN (12:58)
[2020-12-20 14:14] VITALS: BP 121/65
== END 2020-12-20 13:40 | disposition home health service (06) ==
LOC: EDUNIT# → EDBD → N.ED 15:24 → N.EDINP 15:24 → SUATTDRO 17:37 → N.EDINP 18:50 → N.4E 19:05
PROVIDERS: ADMIT Internal Medicine; ATTEND Internal Medicine

== ENCOUNTER 2020-12-23 12:39 | Observation (INO) ==
[2020-12-23] MEDS ORDERED: ALBUTEROL 2.5 MG/3 ML NEB RESP TX STA (12:59)
[2020-12-23] MEDS ORDERED: SODIUM CHLORIDE 0.9% 1,000 ML IV STA (12:59)
[2020-12-23] MEDS ORDERED: ALBUTEROL/IPRATROPIUM 3 ML NEB RESP TX STA (12:59)
[2020-12-23] MEDS ORDERED: methylPREDNISolone SOD SUC 125 MG/2 ML VIAL IV STA (12:59)
[2020-12-23 13:27] LABS: Basophils % 0.3 % (0.0-0.8); Eosinophils # 0.1 10*3/uL (0.0-0.87); Eosinophils % 1.1 % (0.00-10.9); Hematocrit 32.7 VOL% (35.7-47.0); Hemoglobin 10.2 GM/DL (12.0-16.0); Immature Granulocytes % 0.3 %; Immature Granulocytes Absolute 0.02 #; Lymphocytes # 1.7 10*3/uL (1.4-4.0); Lymphocytes % 25.8 % (21.3-54.2); Mean Corpuscular HGB Conc 31.2 GM/DL (32-36); Monocytes % 7.6 % (1.7-12.7); Neutrophils % 64.9 % (38.7-73.9); Platelet Count 329 T/CUMM (130-400); Red Blood Count 3.27 MC/CUMM (3.8-5.5); White Blood Count 6.6 T/CUMM (4-12)
[2020-12-23 13:32] LABS: ABG Base Excess 1.2 MMOL/L (-2.5-2.5); ABG HCO3 25.4 MMOL/L (20-26); ABG Oxygen Saturation 96.1 % (95-100); ABG PCO2 51.1 MM HG (35-48); ABG PO2 81.5 MM HG (80-95); ABG TCO2 25.3 MMOL/L (23-27)
[2020-12-23 13:35] LABS: Alanine Aminotransferase 22 U/L (13-56); Albumin 3.5 G/DL (3.4-5.0); Alkaline Phosphatase 78 U/L (45-117); Aspartate Amino Transferase 10 U/L (0-37); Bilirubin,Total < 0.39 MG/DL (0.2-1.0); Blood Urea Nitrogen 23 MG/DL (7-18); Calcium 8.8 MG/DL (8.5-10.1); Carbon Dioxide 28 MMOL/L (21-32); Estimated Glom Filtration Rate 59 ML/MIN; Glucose 102 MG/DL (74-106); Osmolality,Calculated 278.7 MOS/KG (273-304); Potassium 4.5 MMOL/L (3.5-5.1); Sodium 138 MMOL/L (136-145); Total Protein 7.3 G/DL (5.0-7.5); Troponin I < 0.015 NG/ML (0.00-0.045)
[2020-12-23 13:39] LABS: PT Patient Result 10.3 SECS (9.8-11.9); Partial Thromboplastin Time 23.6 SECS (23.9-33.8)
[2020-12-23] MEDS ORDERED: hydrALAZINE 20 MG/1 ML VIAL IV PRN (15:32)
[2020-12-23] MEDS ORDERED: DOCUSATE SODIUM 100 MG CAPSULE PO PRN (15:32)
[2020-12-23] MEDS ORDERED: ONDANSETRON 4 MG/2 ML VIAL IV PRN (15:32)
[2020-12-23] MEDS ORDERED: GLUCAGON 1 MG VIAL IM PRN (15:32)
[2020-12-23] MEDS ORDERED: DEXTROSE 50% 25 GM/50 ML VIAL IV PRN (15:32)
[2020-12-23] MEDS ORDERED: BUDESONIDE 0.5 MG/2 ML NEB RESP TX PRN (15:41)
[2020-12-23] MEDS ORDERED: ALBUTEROL 2.5 MG/3 ML NEB RESP TX PRN (16:55)
[2020-12-23 17:13] LABS: Bacteria,Urine Occasional /HPF (Few); Bilirubin,Urine Negative (Negative); Blood, Urine Negative (Negative); Glucose,Urine (UA) Negative (Negative); Ketones,Urine Negative (Negative); Mucus,Urine Occasional /LPF (Occasional); Nitrite,Urine Negative (Negative); Protein,Urine Negative; RBC,Urine 2 /HPF (0-4); Renal Epithelial Cells,Urine Occasional /HPF (<1); Squamous Epithelial Cell,Urine Occasional /HPF (0-10); Urine Appearance CLEAR (Clear); Urine Color Straw (Yellow); Urine Specific Gravity 1.008 (1.001-1.035); Urine Urobilinogen < 2.0 EU/DL (0.2-1.0); WBC,Urine 16 /HPF (0-6)
[2020-12-23] MEDS: ENOXAPARIN 40 MG/0.4 ML SYRINGE SUBCUT SCH (18:03)
[2020-12-23] MEDS: methylPREDNISolone SOD SUC 40 MG/1 ML VIAL IV SCH (18:03)
[2020-12-23] MEDS: ALBUTEROL 2.5 MG/3 ML NEB RESP TX SCH (18:50)
[2020-12-23] MEDS ORDERED: BUDESONIDE 0.5 MG/2 ML NEB RESP TX SCH (19:00)
[2020-12-23] MEDS: METOPROLOL TARTRATE 25 MG TABLET PO SCH (21:11)
[2020-12-23] MEDS: DOXYCYCLINE HYCLATE 100 MG CAPSULE PO SCH (21:11)
[2020-12-23] MEDS: ACETAMINOPHEN 325 MG TABLET PO PRN (21:11)
[2020-12-23] MEDS: PHENYTOIN ER 100 MG CAPSULE PO SCH (21:11)
[2020-12-23] MEDS: BUDESONIDE/FORMOTEROL 160-4.5 INHALER 6 GM INH SCH (21:12)
[2020-12-23] MEDS: ALPRAZolam 0.5 MG TABLET PO PRN (21:12)
[2020-12-24] MEDS: ALBUTEROL 2.5 MG/3 ML NEB RESP TX SCH ×5 (00:40→23:54)
[2020-12-24] MEDS: methylPREDNISolone SOD SUC 40 MG/1 ML VIAL IV SCH ×3 (00:57→16:19)
[2020-12-24] MEDS: ALBUTEROL 2.5 MG/3 ML NEB RESP TX PRN (04:32)
[2020-12-24 06:00] LABS: Basophils % 0.2 % (0.0-0.8); Hematocrit 28.4 VOL% (35.7-47.0); Hemoglobin 9.1 GM/DL (12.0-16.0); Immature Granulocytes % 0.5 %; Immature Granulocytes Absolute 0.02 #; Lymphocytes % 23.2 % (21.3-54.2); Mean Corpuscular Volume 97.3 FL (87-102); Mean Platelet Volume 9.4 FL (9.6-12.0); Monocytes % 4.1 % (1.7-12.7); Platelet Count 243 T/CUMM (130-400); Red Blood Count 2.92 MC/CUMM (3.8-5.5); Red Cell Distribution Width 12.7 % (9.3-17.3); White Blood Count 4.2 T/CUMM (4-12)
[2020-12-24 06:34] LABS: Calcium 8.7 MG/DL (8.5-10.1); Osmolality,Calculated 276.7 MOS/KG (273-304); Potassium 4.5 MMOL/L (3.5-5.1); Risk Ratio 2.89; Thyroid Stimulating Hormone 0.229 uIU/ml (0.358-3.74); VLDL CHOLESTEROL 15.2 MG/DL
[2020-12-24] MEDS: PANTOPRAZOLE 40 MG TABLET PO SCH (08:13)
[2020-12-24] MEDS: MULTIVITAMIN (CENTRUM) TABLET PO SCH (08:13)
[2020-12-24] MEDS: PHENYTOIN ER 100 MG CAPSULE PO SCH ×3 (08:13→21:08)
[2020-12-24] MEDS: METOPROLOL TARTRATE 25 MG TABLET PO SCH ×2 (08:13→21:04)
[2020-12-24] MEDS: DULoxetine 20 MG CAPSULE PO SCH (08:13)
[2020-12-24] MEDS: amLODIPine 10 MG TABLET PO SCH (08:13)
[2020-12-24] MEDS: BUDESONIDE/FORMOTEROL 160-4.5 INHALER 6 GM INH SCH ×2 (08:14→21:04)
[2020-12-24] MEDS: DOXYCYCLINE HYCLATE 100 MG CAPSULE PO SCH ×2 (08:14→21:08)
[2020-12-24] MEDS: ACETYLCYSTEINE 20% 800 MG/4 ML VIAL RESP TX SCH ×2 (12:30→18:43)
[2020-12-24] MEDS: ACETAMINOPHEN 325 MG TABLET PO PRN (13:23)
[2020-12-24] MEDS: ALPRAZolam 0.5 MG TABLET PO PRN (14:15)
[2020-12-24] MEDS: ENOXAPARIN 40 MG/0.4 ML SYRINGE SUBCUT SCH (16:19)
[2020-12-25] MEDS: methylPREDNISolone SOD SUC 40 MG/1 ML VIAL IV SCH ×3 (00:01→16:21)
[2020-12-25] MEDS: ACETYLCYSTEINE 20% 800 MG/4 ML VIAL RESP TX SCH ×4 (03:38→18:55)
[2020-12-25] MEDS: ALBUTEROL 2.5 MG/3 ML NEB RESP TX PRN (03:38)
[2020-12-25] MEDS: ALBUTEROL 2.5 MG/3 ML NEB RESP TX SCH ×3 (07:21→18:55)
[2020-12-25] MEDS: MULTIVITAMIN (CENTRUM) TABLET PO SCH (08:39)
[2020-12-25] MEDS: amLODIPine 10 MG TABLET PO SCH (08:39)
[2020-12-25] MEDS: PHENYTOIN ER 100 MG CAPSULE PO SCH ×3 (08:39→21:14)
[2020-12-25] MEDS: METOPROLOL TARTRATE 25 MG TABLET PO SCH ×2 (08:39→21:13)
[2020-12-25] MEDS: DOXYCYCLINE HYCLATE 100 MG CAPSULE PO SCH ×2 (08:39→21:13)
[2020-12-25] MEDS: DULoxetine 20 MG CAPSULE PO SCH (08:39)
[2020-12-25] MEDS: PANTOPRAZOLE 40 MG TABLET PO SCH (08:39)
[2020-12-25] MEDS: BUDESONIDE/FORMOTEROL 160-4.5 INHALER 6 GM INH SCH ×2 (08:40→21:14)
[2020-12-25] MEDS: ALPRAZolam 0.5 MG TABLET PO PRN (13:28)
[2020-12-25] MEDS: ENOXAPARIN 40 MG/0.4 ML SYRINGE SUBCUT SCH (16:21)
[2020-12-26] MEDS: methylPREDNISolone SOD SUC 40 MG/1 ML VIAL IV SCH ×2 (00:09→09:28)
[2020-12-26] MEDS: ACETYLCYSTEINE 20% 800 MG/4 ML VIAL RESP TX SCH ×2 (01:50→07:10)
[2020-12-26] MEDS: ALBUTEROL 2.5 MG/3 ML NEB RESP TX SCH ×2 (01:50→07:10)
[2020-12-26 06:08] LABS: Basophils % 0.1 % (0.0-0.8); Hematocrit 31.7 VOL% (35.7-47.0); Hemoglobin 10.1 GM/DL (12.0-16.0); Immature Granulocytes % 0.4 %; Immature Granulocytes Absolute 0.03 #; Lymphocytes # 1.7 10*3/uL (1.4-4.0); Mean Corpuscular HGB Conc 31.9 GM/DL (32-36); Mean Corpuscular Volume 96.6 FL (87-102); Mean Platelet Volume 9.3 FL (9.6-12.0); Monocytes % 5.3 % (1.7-12.7); Neutrophils % 72.2 % (38.7-73.9); Platelet Count 271 T/CUMM (130-400); Red Blood Count 3.28 MC/CUMM (3.8-5.5); Red Cell Distribution Width 12.6 % (9.3-17.3); White Blood Count 7.7 T/CUMM (4-12)
[2020-12-26 06:26] LABS: Calcium 8.7 MG/DL (8.5-10.1); Osmolality,Calculated 282.4 MOS/KG (273-304); Potassium 4.3 MMOL/L (3.5-5.1)
[2020-12-26] MEDS: MULTIVITAMIN (CENTRUM) TABLET PO SCH (09:29)
[2020-12-26] MEDS: METOPROLOL TARTRATE 25 MG TABLET PO SCH (09:29)
[2020-12-26] MEDS: DOXYCYCLINE HYCLATE 100 MG CAPSULE PO SCH (09:29)
[2020-12-26] MEDS: DULoxetine 20 MG CAPSULE PO SCH (09:29)
[2020-12-26] MEDS: PANTOPRAZOLE 40 MG TABLET PO SCH (09:30)
[2020-12-26] MEDS: amLODIPine 10 MG TABLET PO SCH (09:30)
[2020-12-26] MEDS: ALPRAZolam 0.5 MG TABLET PO PRN (09:34)
[2020-12-26] MEDS: PHENYTOIN ER 100 MG CAPSULE PO SCH (09:34)
[2020-12-26] MEDS: BUDESONIDE/FORMOTEROL 160-4.5 INHALER 6 GM INH SCH (11:08)
[2020-12-26 11:47] VITALS: BP 151/75
== END 2020-12-26 15:27 | disposition home or self-care (01) ==
LOC: EDBD → EDUNIT# → N.ED 12:39 → N.5E 12:39 → SUATTDRO 15:32 → N.5E 17:45
PROVIDERS: ADMIT Internal Medicine Geriatric Medicine; ATTEND Internal Medicine

== ENCOUNTER 2020-12-28 08:47 | Observation (INO) ==
[2020-12-28] MEDS ORDERED: methylPREDNISolone SOD SUC 125 MG/2 ML VIAL IV STA (09:13)
[2020-12-28] MEDS ORDERED: ALBUTEROL/IPRATROPIUM 3 ML NEB RESP TX STA (09:13)
[2020-12-28] MEDS ORDERED: cefTRIAXone 1,000 MG in SODIUM CHLORIDE 0.9% 100 ML IV STA (09:13)
[2020-12-28] MEDS ORDERED: LORazepam 2 MG/1 ML VIAL IV STA (09:33)
[2020-12-28] MEDS ORDERED: LORazepam 2 MG/1 ML VIAL ONE (09:35)
[2020-12-28 09:40] LABS: Basophils % 0.4 % (0.0-0.8); Eosinophils # 0.1 10*3/uL (0.0-0.87); Eosinophils % 0.8 % (0.00-10.9); Hematocrit 35.7 VOL% (35.7-47.0); Hemoglobin 11.2 GM/DL (12.0-16.0); Immature Granulocytes % 0.3 %; Immature Granulocytes Absolute 0.03 #; Lymphocytes # 2.9 10*3/uL (1.4-4.0); Lymphocytes % 31.1 % (21.3-54.2); Mean Corpuscular HGB Conc 31.4 GM/DL (32-36); Mean Corpuscular Volume 97.3 FL (87-102); Mean Platelet Volume 9.1 FL (9.6-12.0); Neutrophils % 59.4 % (38.7-73.9); Platelet Count 316 T/CUMM (130-400); Red Blood Count 3.67 MC/CUMM (3.8-5.5); Red Cell Distribution Width 13.1 % (9.3-17.3); White Blood Count 9.3 T/CUMM (4-12)
[2020-12-28 09:59] LABS: Hypochromasia 1+; Lymphocytes 38 % (20-55); Microcytosis 1+; Myelocytes 1 %; Segmented Neutrophils 57 % (50-85); Total Cells Counted 100
[2020-12-28 10:00] LABS: Ovalocytes Slight
[2020-12-28 10:01] LABS: Atypical Lymphocytes Few
[2020-12-28 10:07] LABS: Alanine Aminotransferase 20 U/L (13-56); Albumin 3.7 G/DL (3.4-5.0); Alkaline Phosphatase 73 U/L (45-117); Aspartate Amino Transferase 9 U/L (0-37); Bilirubin,Total < 0.39 MG/DL (0.2-1.0); Blood Urea Nitrogen 22 MG/DL (7-18); Calcium 9.5 MG/DL (8.5-10.1); Carbon Dioxide 30 MMOL/L (21-32); Estimated Glom Filtration Rate 91 ML/MIN; Glucose 128 MG/DL (74-106); Osmolality,Calculated 279.7 MOS/KG (273-304); Potassium 4.5 MMOL/L (3.5-5.1); Sodium 138 MMOL/L (136-145); Total Protein 7.8 G/DL (5.0-7.5)
[2020-12-28] MEDS ORDERED: ONDANSETRON 4 MG/2 ML VIAL IV PRN (12:36)
[2020-12-28] MEDS ORDERED: DEXTROSE 50% 25 GM/50 ML VIAL IV PRN (12:36)
[2020-12-28] MEDS ORDERED: ACETAMINOPHEN 325 MG TABLET PO PRN (12:36)
[2020-12-28] MEDS ORDERED: GLUCAGON 1 MG VIAL IM PRN (12:36)
[2020-12-28] MEDS ORDERED: ALPRAZolam 0.5 MG TABLET PO PRN (12:40)
[2020-12-28] MEDS: ALBUTEROL 2.5 MG/3 ML NEB RESP TX SCH ×2 (13:47→19:30)
[2020-12-28] MEDS: SODIUM CHLORIDE 0.9% 1,000 ML IV SCH (14:45)
[2020-12-28] MEDS: methylPREDNISolone SOD SUC 40 MG/1 ML VIAL IV SCH (16:25)
[2020-12-28] MEDS: PHENYTOIN ER 100 MG CAPSULE PO SCH ×2 (16:25→21:47)
[2020-12-28] MEDS: ALBUTEROL/IPRATROPIUM 3 ML NEB RESP TX PRN ×2 (16:30→23:08)
[2020-12-28] MEDS ORDERED: BUDESONIDE 0.5 MG/2 ML NEB RESP TX SCH (19:00)
[2020-12-28] MEDS: METOPROLOL TARTRATE 25 MG TABLET PO SCH (21:47)
[2020-12-28] MEDS: DOXYCYCLINE HYCLATE 100 MG CAPSULE PO SCH (21:47)
[2020-12-28] MEDS: BUDESONIDE/FORMOTEROL 160-4.5 INHALER 6 GM INH SCH (21:47)
[2020-12-28] MEDS: ENOXAPARIN 40 MG/0.4 ML SYRINGE SUBCUT SCH (21:48)
[2020-12-29] MEDS: methylPREDNISolone SOD SUC 40 MG/1 ML VIAL IV SCH ×3 (01:31→17:27)
[2020-12-29] MEDS: ALBUTEROL 2.5 MG/3 ML NEB RESP TX SCH ×4 (02:10→19:09)
[2020-12-29] MEDS ORDERED: ALPRAZolam 0.5 MG TABLET PO ONE ×2 (06:21→14:12)
[2020-12-29 06:34] LABS: Basophils % 0.2 % (0.0-0.8); Hematocrit 29.3 VOL% (35.7-47.0); Hemoglobin 8.9 GM/DL (12.0-16.0); Immature Granulocytes % 0.6 %; Immature Granulocytes Absolute 0.03 #; Lymphocytes # 0.9 10*3/uL (1.4-4.0); Lymphocytes % 17.5 % (21.3-54.2); Mean Corpuscular HGB Conc 30.4 GM/DL (32-36); Mean Platelet Volume 9.5 FL (9.6-12.0); Monocytes % 3.9 % (1.7-12.7); Neutrophils % 77.8 % (38.7-73.9); Red Blood Count 2.93 MC/CUMM (3.8-5.5); Red Cell Distribution Width 13.2 % (9.3-17.3); White Blood Count 4.9 T/CUMM (4-12)
[2020-12-29 06:35] LABS: Platelet Count 208 T/CUMM (130-400)
[2020-12-29 06:38] LABS: Osmolality,Calculated 285.3 MOS/KG (273-304); Potassium 4.4 MMOL/L (3.5-5.1)
[2020-12-29] MEDS ORDERED: MORPHINE 4 MG/1 ML VIAL IV ONE (06:54)
[2020-12-29] MEDS ORDERED: LORazepam 2 MG/1 ML VIAL IV ONE (06:55)
[2020-12-29] MEDS ORDERED: MORPHINE 4 MG/1 ML VIAL ONE (06:56)
[2020-12-29] MEDS ORDERED: predniSONE 20 MG TABLET PO SCH (09:00)
[2020-12-29] MEDS: amLODIPine 10 MG TABLET PO SCH (09:41)
[2020-12-29] MEDS: PANTOPRAZOLE 40 MG TABLET PO SCH (09:41)
[2020-12-29] MEDS: PHENYTOIN ER 100 MG CAPSULE PO SCH ×3 (09:42→21:25)
[2020-12-29] MEDS: METOPROLOL TARTRATE 25 MG TABLET PO SCH ×2 (09:42→21:25)
[2020-12-29] MEDS: DOXYCYCLINE HYCLATE 100 MG CAPSULE PO SCH ×2 (09:42→21:25)
[2020-12-29] MEDS: DULoxetine 20 MG CAPSULE PO SCH (09:42)
[2020-12-29] MEDS: BUDESONIDE/FORMOTEROL 160-4.5 INHALER 6 GM INH SCH ×2 (09:43→21:31)
[2020-12-29] MEDS: SODIUM CHLORIDE 0.9% 1,000 ML IV SCH ×3 (11:34→18:07)
[2020-12-29] MEDS: ALBUTEROL/IPRATROPIUM 3 ML NEB RESP TX PRN (12:16)
[2020-12-29] MEDS: ALPRAZolam 0.5 MG TABLET PO SCH (21:25)
[2020-12-29] MEDS: ENOXAPARIN 40 MG/0.4 ML SYRINGE SUBCUT SCH (21:28)
[2020-12-30] MEDS: methylPREDNISolone SOD SUC 40 MG/1 ML VIAL IV SCH ×2 (00:24→08:46)
[2020-12-30] MEDS: ALBUTEROL 2.5 MG/3 ML NEB RESP TX SCH ×5 (00:39→19:38)
[2020-12-30] MEDS: ALBUTEROL/IPRATROPIUM 3 ML NEB RESP TX PRN ×2 (04:18→15:30)
[2020-12-30 05:50] LABS: Hematocrit 30.5 VOL% (35.7-47.0); Hemoglobin 9.2 GM/DL (12.0-16.0); Immature Granulocytes % 0.6 %; Immature Granulocytes Absolute 0.03 #; Lymphocytes # 1.1 10*3/uL (1.4-4.0); Lymphocytes % 23.2 % (21.3-54.2); Mean Corpuscular HGB Conc 30.2 GM/DL (32-36); Mean Corpuscular Volume 101.3 FL (87-102); Mean Platelet Volume 9.4 FL (9.6-12.0); Monocytes % 5.1 % (1.7-12.7); Neutrophils % 71.1 % (38.7-73.9); Platelet Count 204 T/CUMM (130-400); Red Blood Count 3.01 MC/CUMM (3.8-5.5); Red Cell Distribution Width 13.1 % (9.3-17.3); White Blood Count 4.9 T/CUMM (4-12)
[2020-12-30 06:09] LABS: Calcium 8.6 MG/DL (8.5-10.1); Osmolality,Calculated 276.7 MOS/KG (273-304); Potassium 4.1 MMOL/L (3.5-5.1)
[2020-12-30 07:29] LABS: Hypochromasia Slight; Lymphocytes 25 % (20-55); Microcytosis 1+; Platelet Estimate Normal; Segmented Neutrophils 70 % (50-85); Total Cells Counted 100
[2020-12-30] MEDS: SODIUM CHLORIDE 0.9% 1,000 ML IV SCH ×2 (07:43→21:35)
[2020-12-30] MEDS: ALPRAZolam 0.5 MG TABLET PO SCH ×2 (08:46→21:33)
[2020-12-30] MEDS: PANTOPRAZOLE 40 MG TABLET PO SCH (08:46)
[2020-12-30] MEDS: DOXYCYCLINE HYCLATE 100 MG CAPSULE PO SCH ×2 (08:46→21:33)
[2020-12-30] MEDS: DULoxetine 20 MG CAPSULE PO SCH (08:46)
[2020-12-30] MEDS: amLODIPine 10 MG TABLET PO SCH (08:46)
[2020-12-30] MEDS: METOPROLOL TARTRATE 25 MG TABLET PO SCH ×2 (08:47→21:34)
[2020-12-30] MEDS: PHENYTOIN ER 100 MG CAPSULE PO SCH ×3 (08:53→21:33)
[2020-12-30] MEDS: BUDESONIDE/FORMOTEROL 160-4.5 INHALER 6 GM INH SCH ×2 (08:56→21:33)
[2020-12-30] MEDS: NICOTINE 21 MG/24 HR PATCH TRANSDERM SCH (11:26)
[2020-12-30] MEDS: buPROPion SR 100 MG TABLET PO SCH (11:27)
[2020-12-30] MEDS: ENOXAPARIN 40 MG/0.4 ML SYRINGE SUBCUT SCH (21:33)
[2020-12-31] MEDS: ALBUTEROL 2.5 MG/3 ML NEB RESP TX SCH ×3 (01:08→12:28)
[2020-12-31] MEDS: ALBUTEROL/IPRATROPIUM 3 ML NEB RESP TX PRN ×2 (04:32→07:53)
[2020-12-31] MEDS ORDERED: predniSONE 20 MG TABLET PO SCH (09:00)
[2020-12-31] MEDS: BUDESONIDE/FORMOTEROL 160-4.5 INHALER 6 GM INH SCH (09:01)
[2020-12-31] MEDS: buPROPion SR 100 MG TABLET PO SCH (09:10)
[2020-12-31] MEDS: PANTOPRAZOLE 40 MG TABLET PO SCH (09:11)
[2020-12-31] MEDS: DOXYCYCLINE HYCLATE 100 MG CAPSULE PO SCH (09:11)
[2020-12-31] MEDS: amLODIPine 10 MG TABLET PO SCH (09:11)
[2020-12-31] MEDS: METOPROLOL TARTRATE 25 MG TABLET PO SCH (09:11)
[2020-12-31] MEDS: PHENYTOIN ER 100 MG CAPSULE PO SCH (09:11)
[2020-12-31] MEDS: ALPRAZolam 0.5 MG TABLET PO SCH (09:11)
[2020-12-31] MEDS: NICOTINE 21 MG/24 HR PATCH TRANSDERM SCH (09:16)
[2020-12-31 12:13] VITALS: BP 119/60
== END 2020-12-31 12:52 | disposition home or self-care (01) ==
LOC: EDUNIT# → EDBD → N.ED 08:47 → N.EDINP 08:47 → SUATTDRO 12:36 → N.3E 15:18
PROVIDERS: ADMIT Emergency Medicine; ATTEND Internal Medicine

== ENCOUNTER 2021-01-04 03:06 | Observation (INO) ==
[2021-01-04] MEDS ORDERED: PIPERACILLIN/TAZOBACTAM 3,375 MG in SODIUM CHLORIDE 0.9% 100 ML IV STA (03:32)
[2021-01-04] MEDS ORDERED: ALBUTEROL/IPRATROPIUM 3 ML NEB RESP TX STA (03:32)
[2021-01-04] MEDS ORDERED: methylPREDNISolone SOD SUC 125 MG/2 ML VIAL IV STA (03:32)
[2021-01-04] MEDS ORDERED: LORazepam 2 MG/1 ML VIAL IV STA (03:35)
[2021-01-04 03:49] LABS: Basophils % 0.4 % (0.0-0.8); Eosinophils # 0.1 10*3/uL (0.0-0.87); Eosinophils % 1.2 % (0.00-10.9); Hematocrit 34.1 VOL% (35.7-47.0); Hemoglobin 10.3 GM/DL (12.0-16.0); Immature Granulocytes % 0.4 %; Immature Granulocytes Absolute 0.03 #; Lymphocytes % 35.6 % (21.3-54.2); Mean Corpuscular HGB Conc 30.2 GM/DL (32-36); Mean Corpuscular Volume 99.4 FL (87-102); Mean Platelet Volume 9.4 FL (9.6-12.0); Monocytes % 9.9 % (1.7-12.7); Neutrophils % 52.5 % (38.7-73.9); Platelet Count 235 T/CUMM (130-400); Red Blood Count 3.43 MC/CUMM (3.8-5.5); Red Cell Distribution Width 13.6 % (9.3-17.3); White Blood Count 8.4 T/CUMM (4-12)
[2021-01-04 04:00] LABS: Alanine Aminotransferase 18 U/L (13-56); Albumin 3.7 G/DL (3.4-5.0); Alkaline Phosphatase 62 U/L (45-117); Aspartate Amino Transferase 14 U/L (0-37); Bilirubin,Total < 0.39 MG/DL (0.2-1.0); Blood Urea Nitrogen 26 MG/DL (7-18); Calcium 8.6 MG/DL (8.5-10.1); Carbon Dioxide 31 MMOL/L (21-32); Estimated Glom Filtration Rate 58 ML/MIN; Glucose 96 MG/DL (74-106); Osmolality,Calculated 283.4 MOS/KG (273-304); Potassium 4.7 MMOL/L (3.5-5.1); Sodium 140 MMOL/L (136-145); Total Protein 7.3 G/DL (5.0-7.5)
[2021-01-04] MEDS ORDERED: ACETAMINOPHEN 325 MG TABLET PO PRN (05:00)
[2021-01-04] MEDS ORDERED: LORazepam 2 MG/1 ML VIAL IV PRN (05:00)
[2021-01-04] MEDS ORDERED: GLUCAGON 1 MG VIAL IM PRN (05:00)
[2021-01-04] MEDS ORDERED: NICOTINE 21 MG/24 HR PATCH TRANSDERM PRN (05:00)
[2021-01-04] MEDS ORDERED: DEXTROSE 50% 25 GM/50 ML VIAL IV PRN (05:00)
[2021-01-04] MEDS ORDERED: traZODone 50 MG TABLET PO PRN (05:00)
[2021-01-04] MEDS ORDERED: guaiFENesin/DM ER 600-30 MG TABLET PO PRN (05:00)
[2021-01-04] MEDS ORDERED: diphenhydrAMINE CAP 25 MG CAPSULE PO PRN (05:00)
[2021-01-04] MEDS ORDERED: hydrALAZINE 20 MG/1 ML VIAL IV PRN (05:00)
[2021-01-04] MEDS ORDERED: ALPRAZolam 0.5 MG TABLET PO PRN (06:23)
[2021-01-04] MEDS: ALBUTEROL/IPRATROPIUM 3 ML NEB RESP TX SCH ×2 (07:15→13:23)
[2021-01-04] MEDS ORDERED: METOPROLOL TARTRATE 25 MG TABLET PO SCH (09:00)
[2021-01-04] MEDS ORDERED: cefTRIAXone 1,000 MG in SYRINGE 1 EACH IV SCH (09:00)
[2021-01-04] MEDS ORDERED: amLODIPine 10 MG TABLET PO SCH (09:00)
[2021-01-04 12:12] VITALS: BP 102/60
[2021-01-04] MEDS: methylPREDNISolone SOD SUC 40 MG/1 ML VIAL IV SCH ×2 (12:39→13:19)
[2021-01-04] MEDS: ONDANSETRON 4 MG/2 ML VIAL IV PRN ×2 (12:40→13:21)
[2021-01-04] MEDS ORDERED: methylPREDNISolone SOD SUC 40 MG/1 ML VIAL IV SCH (14:00)
== END 2021-01-04 15:38 | disposition home or self-care (01) ==
LOC: EDBD → EDUNIT# → N.EDINP 03:06 → N.ED 03:06 → N.TELES 05:53
PROVIDERS: ADMIT Hospitalist; ATTEND Hospitalist